=== PATIENT | female | born 1955 | race Caucasian/White ===

== ENCOUNTER 2024-10-29 10:10 | Inpatient (IN) | payer OTHER ==
--- OUTSIDE RECORDS SUMMARY | 2024-10-29 10:14 | XMS REPORT | Continuity of Care Document ---
Author Name Unknown Address [address] [facility] [address] [place] [address] [facility] Address [address] [facility] [address] [place] [address] Care Team Providers Care Medicaid Biller Name Role Phone Alivia Melchor Primary Care Physician [phone] Allergies, Adverse Reactions, Alerts Allergy Name Allergy Type Status Severity Reaction(s) Onset Date Inactive Date Treating Clinician Comments Source codeine Propensi ty to adverse reaction to drug Active 03-24 00:00: 00 Calvin Collins Codeine Sulfate - Oral Propensi ty to adverse reaction to drug Active 2022-10 00:00: 00 Calvin Collins Medications Ordered Medication Name Filled Medication Name Start Date Stop Date Current Medication? Ordering Clinician Indication Dosage Frequency Signature (SIG) Comments Components Source omeprazole 40 mg capsule,del ayed release -09 00:00: 00 Yes 1mg Calvin Collins lisinopril 20 mg tablet 9-04 00:00: 00 Yes 1mg Calvin Collins simvastatin 40 mg tablet 0 9-04 00:00: 00 Yes 1mg Calvin Collins lisinopril 20 mg tablet 0 9-03 00:00: 00 Yes 1mg Calvin Collins simvastatin 40 mg tablet 0 9-03 00:00: 00 Yes 1mg Calvin Collins glimepiride 2 mg tablet 8-15 00:00: 00 Yes 1mg Calvin Collins simvastatin 40 mg tablet - 00:00: 00 Yes 1mg Calvin Collins omeprazole 40 mg capsule,del ayed release - 00:00: 00 Yes 1mg Calvin Collins gabapentin 300 mg capsule 03-24 00:00: 00 Yes mg Calvin Collins lisinopril 20 mg tablet 03-24 00:00: 00 Yes 1mg Calvin Collins benzonatate 200 mg capsule 01-20 00:00: 00 Yes 1mg Calvin Collins Bromfed DM 2 mg-30 mg-10 mg/5 mL oral syrup - 00:00: 00 Yes 1mg/5 mL Calvin Collins TAKE 5 MILLILITERS BY MOUTH 3 TIMES A DAY 01-20 00:00: 00 Yes Calvin Collins ondansetron 4 mg disintegrat ing tablet 3- 00:00: 00 Yes mg Calvin Collins lisinopril 20 mg tablet - 00:00: 00 Yes mg Calvin Collins omeprazole 40 mg capsule,del ayed release - 00:00: 00 Yes mg Calvin Collins simvastatin 40 mg tablet - 00:00: 00 Yes mg Calvin Collins TAKE 1 TABLET DAILY. 2- 00:00: 00 Yes 20 Calvin Collins TAKE 1 CAPSULE EVERY MORNING DAILY. 2- 00:00: 00 Yes 40 Calvin Collins TAKE 1 TABLET AT BEDTIME. 2- 00:00: 00 Yes 40 Calvin Collins gabapentin 300 mg capsule 2-11 00:00: 00 Yes mg Calvin Collins OMEPRAZOLE 40 MG CPDR 2022-10 2-05 00:00: 00 Yes Calvin Collins SUPREP BOWEL PREP KIT 17.5-3.13-1 .6 GM/177ML SOLN 2022-10 00:00: 00 Yes Calvin Collins 1 daily 2022-10 00:00: 00 Yes 40 Calvin Collins 1 tab daily 2022-10 00:00: 00 Yes 20 Calvin Collins 1 daily 2022-10 00:00: 00 Yes 81 Calvin Collins every 2 weeks 2022-10 00:00: 00 Yes [id number] Calvin Collins 1 daily 2022-10 00:00: 00 Yes 40 Calvin Collins OMEPRAZOLE 40 MG CPDR 8-14 00:00: 00 Yes Calvin Collins LISINOPRIL 20 MG TABS -22 00:00: 00 Yes Calvin Collins SIMVASTATIN 40 MG TABS 6-22 00:00: 00 Yes Calvin Collins GABAPENTIN 300 MG 5-31 00:00: 00 Yes Calvin Collins TIZANIDINE HYDROCHLORI DE 4 MG TABS 5-31 00:00: 00 Yes Calvin Collins METHOCARBAM OL 750 MG TABS -17 00:00: 00 Yes Calvin Collins NITROFURANT OIN MONOHYDRATE 100 MG -17 00:00: 00 Yes Calvin Collins Immunizations Ordered Immunization Name Filled Immunization Name Date Status Comments Source SHINGRIX VACCINE SHINGRIX VACCINE 2022-11-09 00:00:00 Completed Calvin Collins SHINGRIX VACCINE SHINGRIX VACCINE 2022-11-09 00:00:00 Completed Calvin Collins influenza, high-dose, quadrivalent influenza, high-dose, quadrivalent 2022-08-17 00:00:00 Completed Calvin Collins SHINGRIX VACCINE SHINGRIX VACCINE 2022-08-17 00:00:00 Completed Calvin Collins influenza, high-dose, quadrivalent influenza, high-dose, quadrivalent 2022-08-17 00:00:00 Completed Calvin Collins SHINGRIX VACCINE SHINGRIX VACCINE 2022-08-17 00:00:00 Completed Calvin Collins Influenza, injectable, Madin Kierra Canine Kidney, preservative-free, quadrivalent Influenza, injectable, Madin Kierra Canine Kidney, preservative-free, quadrivalent 2021-09-07 00:00:00 Completed Calvin Collins Influenza, injectable, Madin [place] Canine Kidney, preservative-free, quadrivalent Influenza, injectable, Madin [place] Canine Kidney, preservative-free, quadrivalent 2021-09-07 00:00:00 Completed Calvin Collins Influenza, injectable, Madin [place] Canine Kidney, preservative-free, quadrivalent Influenza, injectable, Madin [place] Canine Kidney, preservative-free, quadrivalent 2020-07-31 00:00:00 Completed Calvin Collins Influenza, injectable, Madin Kierra Canine Kidney, preservative-free, quadrivalent Influenza, injectable, Madin Kierra Canine Kidney, preservative-free, quadrivalent 2020-07-31 00:00:00 Completed Calvin Collins influenza, injectable influenza, injectable 2018-08-25 00:00:00 Completed Calvin Collins influenza, injectable influenza, injectable 2018-08-25 00:00:00 Completed Calvin Collins Tdap Tdap 2013-07-14 00:00:00 Completed Calvin Collins Tdap Tdap 2013-07-14 00:00:00 Completed Calvin Collins Vital Signs Vital Name Observation Time Observation Value Comments S ourwendy BP Systolic 2024-08-31 15:55:00 125 mm[Hg] Step hen F Dennis BP Diastolic 2024-08-31 15:55:00 58 mm[Hg] Jose phen F Dennis Weight Measured 2024-08-31 15:55:00 199.00 pounds Calvin F Dennis Height Measured 2024-08-31 15:55:00 65.35 inches Calvin F Dennis Body Temperature 2024-08-31 15:55:00 97.70 degrees Calvin F Dennis Heart Rate 2024-08-31 15:55:00 84.00 /min Park en F Dennis Respiratory Rate 2024-08-31 15:55:00 17.00 /min Calvin F Dennis BP Systolic 2024-06-15 08:44:00 140 mm[Hg] Step hen F Dennis BP Diastolic 2024-06-15 08:44:00 66 mm[Hg] Jose phen F Dennis Weight Measured 2024-06-15 08:44:00 194.80 pounds Calvin F Dennis Height Measured 2024-06-15 08:44:00 65.35 inches Calvin F Dennis Body Temperature 2024-06-15 08:44:00 97.90 degrees Calvin F Dennis Heart Rate 2024-06-15 08:44:00 56.00 /min Park en F Dennis Respiratory Rate 2024-06-15 08:44:00 17.00 /min Calvin F Dennis BP Systolic 2024-06-10 08:29:00 137 mm[Hg] Step hen F Dennis BP Diastolic 2024-06-10 08:29:00 63 mm[Hg] Jose phen F Dennis Weight Measured 2024-06-10 08:29:00 194.80 pounds Calvin F Dennis Height Measured 2024-06-10 08:29:00 65.35 inches Calvin F Dennis Body Temperature 2024-06-10 08:29:00 98.10 degrees Calvin F Dennis Heart Rate 2024-06-10 08:29:00 64.00 /min Park en F Dennis Respiratory Rate 2024-06-10 08:29:00 17.00 /min Calvin F Dennis BP Systolic 2024-06-03 09:28:00 158 mm[Hg] Step hen F Dennis BP Diastolic 2024-06-03 09:28:00 69 mm[Hg] Jose phen F Dennis Weight Measured 2024-06-03 09:28:00 197.20 pounds Calvin F Dennis Height Measured 2024-06-03 09:28:00 65.35 inches Calvin F Dennis Body Temperature 2024-06-03 09:28:00 97.40 degrees Calvin F Dennis Heart Rate 2024-06-03 09:28:00 64.00 /min Park en F Dennis Respiratory Rate 2024-06-03 09:28:00 18.00 /min Calvin F Dennis BP Systolic 2024-03-24 10:50:00 181 mm[Hg] Step hen F Dennis BP Diastolic 2024-03-24 10:50:00 82 mm[Hg] Jose phen F Dennis Weight Measured 2024-03-24 10:50:00 190.20 pounds Calvin F Dennis Height Measured 2024-03-24 10:50:00 65.35 inches Calvin F Dennis Body Temperature 2024-03-24 10:50:00 97.90 degrees Calvin F Dennis Heart Rate 2024-03-24 10:50:00 61.00 /min Park en F Dennis Respiratory Rate 2024-03-24 10:50:00 Calvin F Dennis BP Diastolic 2024-03-09 10:42:00 71 mm[Hg] Jose phen F Dennis Weight Measured 2024-03-09 10:42:00 193.60 pounds Calvin F Dennis Height Measured 2024-03-09 10:42:00 65.35 inches Calvin F Dennis Body Temperature 2024-03-09 10:42:00 97.90 degrees Calvin F Dennis Heart Rate 2024-03-09 10:42:00 76.00 /min Park en F Dennis Respiratory Rate 2024-03-09 10:42:00 16.00 /min Calvin F Dennis BP Systolic 2024-03-09 10:42:00 128 mm[Hg] Step hen F Dennis BP Systolic 2024-01-21 15:32:00 160 mm[Hg] Step hen F Dennis BP Diastolic 2024-01-21 15:32:00 59 mm[Hg] Jose phen F Dennis Weight Measured 2024-01-21 15:32:00 193.40 pounds Calvin F Dennis Height Measured 2024-01-21 15:32:00 65.35 inches Calvin F Dennis Body Temperature 2024-01-21 15:32:00 98.20 degrees Calvin F Dennis Heart Rate 2024-01-21 15:32:00 62.00 /min Park en F Dennis Respiratory Rate 2024-01-21 15:32:00 19.00 /min Calvin F Dennis BP Systolic 2023-12-09 11:28:00 126 mm[Hg] Step hen F Dennis BP Diastolic 2023-12-09 11:28:00 57 mm[Hg] Jose phen F Dennis Weight Measured 2023-12-09 11:28:00 194.80 pounds Calvin F Dennis Height Measured 2023-12-09 11:28:00 65.35 inches Calvin F Dennis Body Temperature 2023-12-09 11:28:00 98.20 degrees Calvin F Dennis Heart Rate 2023-12-09 11:28:00 65.00 /min Park en F Dennis Respiratory Rate 2023-12-09 11:28:00 18.00 /min Calvin F Dennis BP Systolic 2023-09-30 08:52:00 147 mm[Hg] Step hen F Dennis BP Diastolic 2023-09-30 08:52:00 74 mm[Hg] Jose phen F Dennis Weight Measured 2023-09-30 08:52:00 192.60 pounds Calvin F Dennis Height Measured 2023-09-30 08:52:00 65.35 inches Calvin F Dennis Body Temperature 2023-09-30 08:52:00 98.20 degrees Calvin F Dennis Heart Rate 2023-09-30 08:52:00 75.00 /min Park en Nurys Collins Respiratory Rate 2023-09-30 08:52:00 19.00 /min Calvin Collins BP Systolic 2023-08-27 09:09:00 124 mm[Hg] Chris Collins BP Diastolic 2023-08-27 09:09:00 68 mm[Hg] Jose Collins Weight Measured 2023-08-27 09:09:00 191.20 pounds Calvin Collins Height Measured 2023-08-27 09:09:00 65.35 inches Calvin Collins Body Temperature 2023-08-27 09:09:00 98.30 degrees Calvin Collins Heart Rate 2023-08-27 09:09:00 72.00 /min Park Collins Respiratory Rate 2023-08-27 09:09:00 Calvin Collins Encounters Start Date/Time End Date/Time Encounter Type Admission Type Attending [facility] Care Department Encounter ID Source 2024-10-29 08:41:12 2024-10-29 08:41:12 Outpatient SFA SFA [id number] Calvin Collins 2024-09-01 10:52:43 2024-09-01 10:52:43 Outpatient SFA SFA [id number] Calvin Collins 2024-08-31 15:49:25 2024-08-31 15:49:25 Outpatient SFA SFA [id number] Calvin Collins 2024-08-31 00:00:00 2024-08-31 00:00:00 Outpatient Visit SFA [id number] Calvin Collins 2024-06-15 08:34:28 2024-06-15 08:34:28 Outpatient SFA SFA [id number] Calvin Collins 2024-06-15 00:00:00 2024-06-15 00:00:00 Outpatient Visit SFA [id number] Calvin Collins 2024-06-10 11:26:20 2024-06-10 11:26:20 Outpatient SFA SFA [id number] Calvin Collins 2024-06-10 00:00:00 2024-06-10 00:00:00 Outpatient Visit SFA [id number] Calvin Collins 2024-06-03 09:19:12 2024-06-03 09:19:12 Outpatient SFA SFA [id number] Calvin Collins 2024-06-03 00:00:00 2024-06-03 00:00:00 Outpatient Visit SFA [id number] Calvin Collins 2024-03-24 10:42:28 2024-03-24 10:42:28 Outpatient SFA SFA [id number] Calvin Collins 2024-03-24 00:00:00 2024-03-24 00:00:00 Outpatient Visit SFA [id number] Calvin Collins 2024-03-09 10:22:54 2024-03-09 10:22:54 Outpatient SFA SFA [id number] Calvin Collins 2024-03-09 00:00:00 2024-03-09 00:00:00 Outpatient Visit SFA [id number] Calvin Collins 2024-01-21 15:23:36 2024-01-21 15:23:36 Outpatient SFA SFA [id number] Calvin Collins 2023-12-09 11:13:04 2023-12-09 11:13:04 Outpatient SFA SFA [id number] Calvin Collins 2023-09-30 08:45:55 2023-09-30 08:45:55 Outpatient SFA SFA [id number] Calvin Collins 2023-08-27 09:03:52 2023-08-27 09:03:52 Outpatient SFA SFA [id number] Calvin Collins Results Test Description Test Time Test Comments Results Result Co mments Source HEPATITIS B SURFACE [id number] 04:12:28* Test Item Value Reference Range Interpretation Comme nts HEPATITIS B SURFACE AB (test code = 2737) NON-REACTIVE NON-REACTIVE HEP B CORE TOTAL [id number] 04:12:28* Test Item Value Reference Range Interpretation Comme nts HEP B CORE TOTAL AB (test code = 2729) NON-REACTIVE NON-REACTIVE UNLESS OTHERWISE INDICATED, ALL TESTING PERFORMED AT [facility] [address] [place] [address] [employer] PRESS HELPER: GRAZYNA POOLE M.D. [place] NUMBER [id number] [facility] [place]. [id number] HIV 1/2 4TH GEN, RFLX [id number] 04:12:28* Test Item Value Reference Range Interpretation Comme nts HIV 1/2 4TH GEN, RFLX CONF ( test code = 3514) NON-REACTIVE NON-REACTIVE HEPATITIS C [id number] 04:12:28* Test Item Value Reference Range Interpretation Comme nts HEPATITIS C ANTIBODY (test c ode = 4675) NON-REACTIVE NON-REACTIVE HEPATITIS B SURF [id number] 04:12:28* Test Item Value Reference Range Interpretation Comme nts HEPATITIS B SURF AG (test co de = 2739) NON-REACTIVE NON-REACTIVE CBC W/AUTO DIFF WITH [id number] 03:43:35* Test Item Value Reference Range Interpretation Comme nts WBC (test code = 1001) 6.4 K/UL 3.5-11.0 RBC (test code = 1002) 3.73 M/UL 3.80-5.40 L HEMOGLOBIN (test code = 1003) 12.6 G/DL 11.5-15.5 HEMATOCRIT (test code = 1004) 36.6 % 34.0-45.0 MCV (test code = 1005) 98.1 fL 80.0-99.0 MCH (test code = 1006) 33.8 PG 25.0-33.0 H MCHC (test code = 1007) 34.4 G/DL 31.0-36.0 RDW (test code = 1038) 12.9 % 11.5-15.0 NEUTROPHILS (test code = 1008) 36.0 % LYMPHOCYTES (test code = 1010) 52.8 % MONOCYTES (test code = 1011) 6.1 % EOSINOPHILS (test code = 1012) 4.3 % BASOPHILS (test code = 1013) 0.6 % IMMATURE GRANULOCYTES (test code = 1036) 0.2 % NUCLEATED RBCS (test code = 1065) 0.0 /100 WBC'S See_Comment [Automated [employer] ge] The system which generated this result transmitted reference range: 0.0. The reference range was not used to interpret this result as normal/abnormal. PLATELET COUNT (test code = 1015) 264 K/UL 130-400 ABSOLUTE NEUTROPHILS (test code = 1066) 2.29 K/UL 1.50-7.50 ABSOLUTE LYMPHOCYTES (test code = 1067) 3.35 K/UL 1.00-4.00 ABSOLUTE MONOCYTES (test code = 1068) 0.39 K/UL 0.20-1.00 ABSOLUTE EOSINOPHILS (test code = 1040) 0.27 K/UL 0.00-0.50 ABSOLUTE BASOPHILS (test code = 1069) 0.04 K/UL 0.00-0.20 ABS IMMATURE GRANULOCYTES (test code = 1020) 0.01 K/UL 0.00-0.10 ABS NUCLEATED RBCS (test code = 38985) 0.00 K/UL 0.00-0.11 LIPID [id number] 03:20:09* Test Item Value Reference Range Interpretation Comme nts CHOLESTEROL (test code = 2210) 195 MG/DL <200 TRIGLYCERIDES (test code = 2232) 322 MG/DL <150 H HDL CHOLESTEROL (test code = 2220) 42 MG/DL >39 CALC LDL CHOL (test code = 2237) 110 MG/DL <100 H NOTE: CALCULATED LDL IS BASED ON REJI-ARRIAZA METHOD WHICHINCLUDES ADJUSTABLE TRIGLYCERIDE:VLDL CHOLESTEROL RATIO.THIS FACTOR VARIES BY MEASURED TRIGLYCERIDE AND NON-HDLCHOLESTEROL CONCENTRATIONS WITH INCREASED CALCULATED LDL SEENIN HIGHER TRIGLYCERIDE OR LOWER NON-HDL SPECIMENS. FOR MOREINFORMATION, SEE CLIENT ANNOUNCEMENT AT [email or web address] RISK RATIO LDL/HDL (test code = 2238) 2.62 RATIO <3.22 COMPREHENSIVE METABOLIC [id number] 03:20:09* Test Item Value Reference Range Interpretation Comme nts GLUCOSE (test code = 2217) 186 MG/DL 70-99 H BUN (test code = 2208) 14 MG/DL 8-23 CREATININE (test code = 2214) 0.99 MG/DL 0.60-1.30 eGFR (2020 CKD-EPI) (test co de = 73685) 62 ML/MIN/1.73 >60 CALC BUN/CREAT (test code = 2234) 14 RATIO 6-28 SODIUM (test code = 223) 138 MEQ/L 133-146 POTASSIUM (test code = 2227) 4.8 MEQ/L 3.5-5.4 CHLORIDE (test code = 2214) 103 MEQ/L 95-107 CARBON DIOXIDE (test code = 220) 24 MEQ/L 19-31 CALCIUM (test code = 2208) 9.7 MG/DL 8.5-10.5 PROTEIN, TOTAL (test code = 2228) 6.6 G/DL 6.1-8.3 ALBUMIN (test code = 2200) 4.6 G/DL 3.5-5.2 CALC GLOBULIN (test code = 2239) 2.0 G/DL 1.9-3.7 CALC A/G RATIO (test code = 2233) 2.3 RATIO 1.0-2.6 BILIRUBIN, TOTAL (test code = 2206) 0.3 MG/DL <=1.2 ALKALINE PHOSPHATASE (test code = 2203) 59 U/L 40-142 AST (test code = 2217) 26 U/L 9-40 ALT (test code = 2219) 33 U/L 5-40 CBC W/AUTO [id number] 00:00:00* Test Item Value Reference Range Interpretation Comme nts WBC (test code = 1001) 6.4 K/UL RBC (test code = 1002) 3.73 M/UL HEMOGLOBIN (test code = 1003) 12.6 G/DL HEMATOCRIT (test code = 1004) 36.6 % MCV (test code = 1005) 98.1 fL MCH (test code = 1006) 33.8 PG MCHC (test code = 1007) 34.4 G/DL RDW (test code = 1038) 12.9 % NEUTROPHILS (test code = 1008) 36.0 % LYMPHOCYTES (test code = 1010) 52.8 % MONOCYTES (test code = 1011) 6.1 % EOSINOPHILS (test code = 1012) 4.3 % BASOPHILS (test code = 1013) 0.6 % IMMATURE GRANULOCYTES (test code = 1036) 0.2 % NUCLEATED RBCS (test code = 1065) 0.0 /100WBC'S PLATELET COUNT (test code = 1015) 264 K/UL ABSOLUTE NEUTROPHILS (test c ode = 1066) 2.29 K/UL ABSOLUTE LYMPHOCYTES (test c ode = 1067) 3.35 K/UL ABSOLUTE MONOCYTES (test cod e = 1068) 0.39 K/UL ABSOLUTE EOSINOPHILS (test c ode = 1040) 0.27 K/UL ABSOLUTE BASOPHILS (test cod e = 1069) 0.04 K/UL ABS IMMATURE GRANULOCYTES (t est code = 1020) 0.01 K/UL ABS NUCLEATED RBCS (test cod e = 08878) 0.00 K/UL Calvin CollinsHEMOGLOBIN [id number] 00:00:00* Test Item Value Reference Range Interpretation Comme nts HEMOGLOBIN A1c (test code = 86302) 6.5 % Calvin CollinsLIPID [id number] 00:00:00* Test Item Value Reference Range Interpretation Comme nts CHOLESTEROL (test code = 2210) 195 MG/DL TRIGLYCERIDES (test code = 2232) 322 MG/DL HDL CHOLESTEROL (test code = 2220) 42 MG/DL CALC LDL CHOL (test code = 2237) 110 MG/DL RISK RATIO LDL/HDL (test cod e = 2238) 2.62 RATIO Calvin CollinsCOMPREHENSIVE METABOLIC [id number] 00:00:00* Test Item Value Reference Range Interpretation Comme nts GLUCOSE (test code = 2217) 186 MG/DL BUN (test code = 2208) 14 MG/DL CREATININE (test code = 2214) 0.99 MG/DL eGFR (2020 CKD-EPI) (test co de = 39689) 62 ML/MIN/1.73 CALC BUN/CREAT (test code = 2235) 14 RATIO SODIUM (test code = 2231) 138 MEQ/L POTASSIUM (test code = 2228) 4.8 MEQ/L CHLORIDE (test code = 2215) 103 MEQ/L CARBON DIOXIDE (test code = 2206) 24 MEQ/L CALCIUM (test code = 2209) 9.7 MG/DL PROTEIN, TOTAL (test code = 2229) 6.6 G/DL ALBUMIN (test code = 2201) 4.6 G/DL CALC GLOBULIN (test code = 2240) 2.0 G/DL CALC A/G RATIO (test code = 2234) 2.3 RATIO BILIRUBIN, TOTAL (test code = 2207) 0.3 MG/DL ALKALINE PHOSPHATASE (test code = 2204) 59 U/L AST (test code = 2218) 26 U/L ALT (test code = 2219) 33 U/L Calvin CollinsHIV 1/2 4TH GEN, RFLX [id number] 00:00:00* Test Item Value Reference Range Interpretation Comme nts HIV 1/2 4TH GEN, RFLX CONF ( test code = 3514) NON-REACTIVE Calvin CollinsHEPATITIS C [id number] 00:00:00* Test Item Value Reference Range Interpretation Comme nts HEPATITIS C ANTIBODY (test c ode = 4675) NON-REACTIVE Calvin CollinsHEPATITIS B SURF [id number] 00:00:00* Test Item Value Reference Range Interpretation Comme nts HEPATITIS B SURF AG (test co de = 2739) NON-REACTIVE Calvin Nuno AustinHEPATITIS B SURFACE [id number] 00:00:00* Test Item Value Reference Range Interpretation Comme nts HEPATITIS B SURFACE AB (test code = 2737) NON-REACTIVE Calvin CollinsHEP B CORE TOTAL [id number] 00:00:00* Test Item Value Reference Range Interpretation Comme nts HEP B CORE TOTAL AB (test co de = 2729) NON-REACTIVE Calvin CollinsCBC W/AUTO [id number] 00:00:00* Test Item Value Reference Range Interpretation Comme nts WBC (test code = 1001) 6.4 K/UL RBC (test code = 1002) 3.73 M/UL HEMOGLOBIN (test code = 1003) 12.6 G/DL HEMATOCRIT (test code = 1004) 36.6 % MCV (test code = 1005) 98.1 fL MCH (test code = 1006) 33.8 PG MCHC (test code = 1007) 34.4 G/DL RDW (test code = 1038) 12.9 % NEUTROPHILS (test code = 1008) 36.0 % LYMPHOCYTES (test code = 1010) 52.8 % MONOCYTES (test code = 1011) 6.1 % EOSINOPHILS (test code = 1012) 4.3 % BASOPHILS (test code = 1013) 0.6 % IMMATURE GRANULOCYTES (test code = 1036) 0.2 % NUCLEATED RBCS (test code = 1065) 0.0 /100WBC'S PLATELET COUNT (test code = 1015) 264 K/UL ABSOLUTE NEUTROPHILS (test c ode = 1066) 2.29 K/UL ABSOLUTE LYMPHOCYTES (test c ode = 1067) 3.35 K/UL ABSOLUTE MONOCYTES (test cod e = 1068) 0.39 K/UL ABSOLUTE EOSINOPHILS (test c ode = 1040) 0.27 K/UL ABSOLUTE BASOPHILS (test cod e = 1069) 0.04 K/UL ABS IMMATURE GRANULOCYTES (t est code = 1020) 0.01 K/UL ABS NUCLEATED RBCS (test cod e = 29743) 0.00 K/UL Calvin CollinsHEMOGLOBIN [id number] 00:00:00* Test Item Value Reference Range Interpretation Comme nts HEMOGLOBIN A1c (test code = 07226) 6.5 % Calvin CollinsLIPID [id number] 00:00:00* Test Item Value Reference Range Interpretation Comme nts CHOLESTEROL (test code = 2210) 195 MG/DL TRIGLYCERIDES (test code = 2232) 322 MG/DL HDL CHOLESTEROL (test code = 2220) 42 MG/DL CALC LDL CHOL (test code = 2237) 110 MG/DL RISK RATIO LDL/HDL (test cod e = 2238) 2.62 RATIO Calvin CollinsCOMPREHENSIVE METABOLIC [id number] 00:00:00* Test Item Value Reference Range Interpretation Comme nts GLUCOSE (test code = 2217) 186 MG/DL BUN (test code = 2208) 14 MG/DL CREATININE (test code = 2214) 0.99 MG/DL eGFR (2020 CKD-EPI) (test co de = 70989) 62 ML/MIN/1.73 CALC BUN/CREAT (test code = 2235) 14 RATIO SODIUM (test code = 2231) 138 MEQ/L POTASSIUM (test code = 2228) 4.8 MEQ/L CHLORIDE (test code = 2215) 103 MEQ/L CARBON DIOXIDE (test code = 2206) 24 MEQ/L CALCIUM (test code = 2209) 9.7 MG/DL PROTEIN, TOTAL (test code = 2229) 6.6 G/DL ALBUMIN (test code = 2201) 4.6 G/DL CALC GLOBULIN (test code = 2240) 2.0 G/DL CALC A/G RATIO (test code = 2234) 2.3 RATIO BILIRUBIN, TOTAL (test code = 2207) 0.3 MG/DL ALKALINE PHOSPHATASE (test code = 2204) 59 U/L AST (test code = 2218) 26 U/L ALT (test code = 2219) 33 U/L Calvin CollinsHIV 1/2 4TH GEN, RFLX [id number] 00:00:00* Test Item Value Reference Range Interpretation Comme nts HIV 1/2 4TH GEN, RFLX CONF ( test code = 3514) NON-REACTIVE Calvin CollinsHEPATITIS C [id number] 00:00:00* Test Item Value Reference Range Interpretation Comme nts HEPATITIS C ANTIBODY (test c ode = 4675) NON-REACTIVE Calvin CollinsHEPATITIS B SURF [id number] 00:00:00* Test Item Value Reference Range Interpretation Comme nts HEPATITIS B SURF AG (test co de = 2739) NON-REACTIVE Calvin CollinsHEPATITIS B SURFACE [id number] 00:00:00* Test Item Value Reference Range Interpretation Comme nts HEPATITIS B SURFACE AB (test code = 2737) NON-REACTIVE Calvin CollinsHEP B CORE TOTAL [id number] 00:00:00* Test Item Value Reference Range Interpretation Comme nts HEP B CORE TOTAL AB (test co de = 2729) NON-REACTIVE Calvin CollinsCBC W/AUTO [id number] 00:00:00* Test Item Value Reference Range Interpretation Comme nts WBC (test code = 1001) 6.4 K/UL RBC (test code = 1002) 3.73 M/UL HEMOGLOBIN (test code = 1003) 12.6 G/DL HEMATOCRIT (test code = 1004) 36.6 % MCV (test code = 1005) 98.1 fL MCH (test code = 1006) 33.8 PG MCHC (test code = 1007) 34.4 G/DL RDW (test code = 1038) 12.9 % NEUTROPHILS (test code = 1008) 36.0 % LYMPHOCYTES (test code = 1010) 52.8 % MONOCYTES (test code = 1011) 6.1 % EOSINOPHILS (test code = 1012) 4.3 % BASOPHILS (test code = 1013) 0.6 % IMMATURE GRANULOCYTES (test code = 1036) 0.2 % NUCLEATED RBCS (test code = 1065) 0.0 /100WBC'S PLATELET COUNT (test code = 1015) 264 K/UL ABSOLUTE NEUTROPHILS (test c ode = 1066) 2.29 K/UL ABSOLUTE LYMPHOCYTES (test c ode = 1067) 3.35 K/UL ABSOLUTE MONOCYTES (test cod e = 1068) 0.39 K/UL ABSOLUTE EOSINOPHILS (test c ode = 1040) 0.27 K/UL ABSOLUTE BASOPHILS (test cod e = 1069) 0.04 K/UL ABS IMMATURE GRANULOCYTES (t est code = 1020) 0.01 K/UL ABS NUCLEATED RBCS (test cod e = 25600) 0.00 K/UL Calvin CollinsHEMOGLOBIN [id number] 00:00:00* Test Item Value Reference Range Interpretation Comme nts HEMOGLOBIN A1c (test code = 25280) 6.5 % Calvin CollinsLIPID [id number] 00:00:00* Test Item Value Reference Range Interpretation Comme nts CHOLESTEROL (test code = 2210) 195 MG/DL TRIGLYCERIDES (test code = 2232) 322 MG/DL HDL CHOLESTEROL (test code = 2220) 42 MG/DL CALC LDL CHOL (test code = 2237) 110 MG/DL RISK RATIO LDL/HDL (test cod e = 2238) 2.62 RATIO Calvin CollinsCOMPREHENSIVE METABOLIC [id number] 00:00:00* Test Item Value Reference Range Interpretation Comme nts GLUCOSE (test code = 2217) 186 MG/DL BUN (test code = 2208) 14 MG/DL CREATININE (test code = 2214) 0.99 MG/DL eGFR (2020 CKD-EPI) (test co de = 04827) 62 ML/MIN/1.73 CALC BUN/CREAT (test code = 2235) 14 RATIO SODIUM (test code = 2231) 138 MEQ/L POTASSIUM (test code = 2228) 4.8 MEQ/L CHLORIDE (test code = 2215) 103 MEQ/L CARBON DIOXIDE (test code = 2206) 24 MEQ/L CALCIUM (test code = 2209) 9.7 MG/DL PROTEIN, TOTAL (test code = 2229) 6.6 G/DL ALBUMIN (test code = 2201) 4.6 G/DL CALC GLOBULIN (test code = 2240) 2.0 G/DL CALC A/G RATIO (test code = 2234) 2.3 RATIO BILIRUBIN, TOTAL (test code = 2207) 0.3 MG/DL ALKALINE PHOSPHATASE (test code = 2204) 59 U/L AST (test code = 2218) 26 U/L ALT (test code = 2219) 33 U/L Calvin CollinsHIV 1/2 4TH GEN, RFLX [id number] 00:00:00* Test Item Value Reference Range Interpretation Comme nts HIV 1/2 4TH GEN, RFLX CONF ( test code = 3514) NON-REACTIVE Calvin CollinsHEPATITIS C [id number] 00:00:00* Test Item Value Reference Range Interpretation Comme nts HEPATITIS C ANTIBODY (test c ode = 4675) NON-REACTIVE Calvin CollinsHEPATITIS B SURF [id number] 00:00:00* Test Item Value Reference Range Interpretation Comme nts HEPATITIS B SURF AG (test co de = 2739) NON-REACTIVE Calvin CollinsHEPATITIS B SURFACE [id number] 00:00:00* Test Item Value Reference Range Interpretation Comme nts HEPATITIS B SURFACE AB (test code = 2737) NON-REACTIVE Calvin CollinsHEP B CORE TOTAL [id number] 00:00:00* Test Item Value Reference Range Interpretation Comme nts HEP B CORE TOTAL AB (test co de = 2729) NON-REACTIVE Calvin Nuno AustinTSH, THIRD [id number] 06:45:41* Test Item Value Reference Range Interpretation Comme nts TSH, THIRD GENERATION (test code = 2821) 1.510 UIU/ML 0.400-4.100 UNLESS OTHERWISE INDICATED, ALL TESTING PERFORMED AT [facility] [address] [place] [address] SPAGHETTI PRESS HELPER: GRAZYNA POOLE M.D. CLIA NUMBER [id number] [facility] [place]. [id number] LIPID [id number] 06:15:21* Test Item Value Reference Range Interpretation Comme nts CHOLESTEROL (test code = 2210) 191 MG/DL <200 TRIGLYCERIDES (test code = 2232) 238 MG/DL <150 H HDL CHOLESTEROL (test code = 2220) 45 MG/DL >39 CALC LDL CHOL (test code = 2237) 110 MG/DL <100 H NOTE: CALCULATED LDL IS BASED ON REJI-ARRIAZA METHOD WHICHINCLUDES ADJUSTABLE TRIGLYCERIDE:VLDL CHOLESTEROL RATIO.THIS FACTOR VARIES BY MEASURED TRIGLYCERIDE AND NON-HDLCHOLESTEROL CONCENTRATIONS WITH INCREASED CALCULATED LDL SEENIN HIGHER TRIGLYCERIDE OR LOWER NON-HDL SPECIMENS. FOR MOREINFORMATION, SEE CLIENT ANNOUNCEMENT AT [email or web address] RISK RATIO LDL/HDL (test code = 2238) 2.44 RATIO <3.22 COMPREHENSIVE METABOLIC [id number] 06:15:21* Test Item Value Reference Range Interpretation Comme nts GLUCOSE (test code = 221) 108 MG/DL 70-99 H BUN (test code = 2207) 18 MG/DL 8-23 CREATININE (test code = 2214) 1.03 MG/DL 0.60-1.30 eGFR (2020 CKD-EPI) (test co de = 11142) 60 ML/MIN/1.73 >60 L CALC BUN/CREAT (test code = 2235) 17 RATIO 6-28 SODIUM (test code = 223) 141 MEQ/L 133-146 POTASSIUM (test code = 2228) 4.6 MEQ/L 3.5-5.4 CHLORIDE (test code = 2215) 104 MEQ/L 95-107 CARBON DIOXIDE (test code = 2206) 25 MEQ/L 19-31 CALCIUM (test code = 2209) 10.0 MG/DL 8.5-10.5 PROTEIN, TOTAL (test code = 222) 6.8 G/DL 6.1-8.3 ALBUMIN (test code = 2201) 4.6 G/DL 3.5-5.2 CALC GLOBULIN (test code = 2240) 2.2 G/DL 1.9-3.7 CALC A/G RATIO (test code = 2234) 2.1 RATIO 1.0-2.6 BILIRUBIN, TOTAL (test code = 220) 0.4 MG/DL <=1.2 ALKALINE PHOSPHATASE (test code = 2204) 62 U/L 40-142 AST (test code = 2218) 21 U/L 9-40 ALT (test code = 2219) 26 U/L 5-40 HEMOGLOBIN [id number] 02:16:22* Test Item Value Reference Range Interpretation Comme nts HEMOGLOBIN A1c (test code = 12798) 6.0 % 4.2-5.6 H [employer] GUIDELINES FOR HGB A1C: PREDIABETES/INCREASED RISK . . . . . . . 5.7-6.4% DIAGNOSIS OF DIABETES . . . . . . . . . >=6.5% WITH CONFIRMATION OR APPROPRIATE SYMPTOMS NOTE: ASSAY MAY BE AFFECTED BY HEMOGLOBINOPATHIES (SICKLE CELL ANEMIA, S-C DISEASE, OTHERS) OR ARTIFICIALLY LOWERED BY DECREASED RED CELL SURVIVAL (HEMOLYTIC ANEMIAS, BLOOD LOSS, ETC.). CONSIDER ALTERNATE TESTING OR LABORATORY CONSULTATION. CBC W/AUTO DIFF WITH [id number] 01:53:52* Test Item Value Reference Range Interpretation Comme nts WBC (test code = 1001) 7.3 K/UL 3.5-11.0 RBC (test code = 1002) 3.80 M/UL 3.80-5.40 HEMOGLOBIN (test code = 1003) 12.7 G/DL 11.5-15.5 HEMATOCRIT (test code = 1004) 37.9 % 34.0-45.0 MCV (test code = 1005) 99.7 fL 80.0-99.0 H MCH (test code = 1006) 33.4 PG 25.0-33.0 H MCHC (test code = 1007) 33.5 G/DL 31.0-36.0 RDW (test code = 1038) 12.8 % 11.5-15.0 NEUTROPHILS (test code = 1008) 48.1 % LYMPHOCYTES (test code = 1010) 40.3 % MONOCYTES (test code = 1011) 6.0 % EOSINOPHILS (test code = 1012) 4.7 % BASOPHILS (test code = 1013) 0.8 % IMMATURE GRANULOCYTES (test code = 1036) 0.1 % NUCLEATED RBCS (test code = 1065) 0.0 /100 WBC'S See_Comment [Automated [employer] The system which generated this result transmitted reference range: 0.0. The reference range was not used to interpret this result as normal/abnormal. PLATELET COUNT (test code = 1015) 281 K/UL 130-400 ABSOLUTE NEUTROPHILS (test code = 1066) 3.50 K/UL 1.50-7.50 ABSOLUTE LYMPHOCYTES (test code = 1067) 2.94 K/UL 1.00-4.00 ABSOLUTE MONOCYTES (test code = 1068) 0.44 K/UL 0.20-1.00 ABSOLUTE EOSINOPHILS (test code = 1040) 0.34 K/UL 0.00-0.50 ABSOLUTE BASOPHILS (test code = 1069) 0.06 K/UL 0.00-0.20 ABS IMMATURE GRANULOCYTES (test code = 1020) 0.01 K/UL 0.00-0.10 ABS NUCLEATED RBCS (test code = 70156) 0.00 K/UL 0.00-0.11 LIPID [id number] 00:00:00* Test Item Value Reference Range Interpretation Comme nts CHOLESTEROL (test code = 2210) 191 MG/DL TRIGLYCERIDES (test code = 2232) 238 MG/DL HDL CHOLESTEROL (test code = 2220) 45 MG/DL CALC LDL CHOL (test code = 2237) 110 MG/DL RISK RATIO LDL/HDL (test cod e = 2238) 2.44 RATIO Calvin F DennisCOMPREHENSIVE METABOLIC [id number] 00:00:00* Test Item Value Reference Range Interpretation Comme nts GLUCOSE (test code = 2217) 108 MG/DL BUN (test code = 2208) 18 MG/DL CREATININE (test code = 2214) 1.03 MG/DL eGFR (2020 CKD-EPI) (test co de = 09381) 60 ML/MIN/1.73 CALC BUN/CREAT (test code = 2235) 17 RATIO SODIUM (test code = 2231) 141 MEQ/L POTASSIUM (test code = 2228) 4.6 MEQ/L CHLORIDE (test code = 2215) 104 MEQ/L CARBON DIOXIDE (test code = 2206) 25 MEQ/L CALCIUM (test code = 2209) 10.0 MG/DL PROTEIN, TOTAL (test code = 2229) 6.8 G/DL ALBUMIN (test code = 2201) 4.6 G/DL CALC GLOBULIN (test code = 2240) 2.2 G/DL CALC A/G RATIO (test code = 2234) 2.1 RATIO BILIRUBIN, TOTAL (test code = 2207) 0.4 MG/DL ALKALINE PHOSPHATASE (test code = 2204) 62 U/L AST (test code = 2218) 21 U/L ALT (test code = 2219) 26 U/L Calvin PyleH, THIRD [id number] 00:00:00* Test Item Value Reference Range Interpretation Comme nts TSH, THIRD GENERATION (test code = 2821) 1.510 UIU/ML Calvin CollinsCBC W/AUTO [id number] 00:00:00* Test Item Value Reference Range Interpretation Comme nts WBC (test code = 1001) 7.3 K/UL RBC (test code = 1002) 3.80 M/UL HEMOGLOBIN (test code = 1003) 12.7 G/DL HEMATOCRIT (test code = 1004) 37.9 % MCV (test code = 1005) 99.7 fL MCH (test code = 1006) 33.4 PG MCHC (test code = 1007) 33.5 G/DL RDW (test code = 1038) 12.8 % NEUTROPHILS (test code = 1008) 48.1 % LYMPHOCYTES (test code = 1010) 40.3 % MONOCYTES (test code = 1011) 6.0 % EOSINOPHILS (test code = 1012) 4.7 % BASOPHILS (test code = 1013) 0.8 % IMMATURE GRANULOCYTES (test code = 1036) 0.1 % NUCLEATED RBCS (test code = 1065) 0.0 /100WBC'S PLATELET COUNT (test code = 1015) 281 K/UL ABSOLUTE NEUTROPHILS (test c ode = 1066) 3.50 K/UL ABSOLUTE LYMPHOCYTES (test c ode = 1067) 2.94 K/UL ABSOLUTE MONOCYTES (test cod e = 1068) 0.44 K/UL ABSOLUTE EOSINOPHILS (test c ode = 1040) 0.34 K/UL ABSOLUTE BASOPHILS (test cod e = 1069) 0.06 K/UL ABS IMMATURE GRANULOCYTES (t est code = 1020) 0.01 K/UL ABS NUCLEATED RBCS (test cod e = 55930) 0.00 K/UL Calvin CollinsHEMOGLOBIN [id number] 00:00:00* Test Item Value Reference Range Interpretation Comme nts HEMOGLOBIN A1c (test code = 83105) 6.0 % Calvin CollinsLIPID [id number] 00:00:00* Test Item Value Reference Range Interpretation Comme nts CHOLESTEROL (test code = 2210) 191 MG/DL TRIGLYCERIDES (test code = 2232) 238 MG/DL HDL CHOLESTEROL (test code = 2220) 45 MG/DL CALC LDL CHOL (test code = 2237) 110 MG/DL RISK RATIO LDL/HDL (test cod e = 2238) 2.44 RATIO Calvin CollinsCOMPREHENSIVE METABOLIC [id number] 00:00:00* Test Item Value Reference Range Interpretation Comme nts GLUCOSE (test code = 2217) 108 MG/DL BUN (test code = 2208) 18 MG/DL CREATININE (test code = 2214) 1.03 MG/DL eGFR (2020 CKD-EPI) (test co de = 20815) 60 ML/MIN/1.73 CALC BUN/CREAT (test code = 2235) 17 RATIO SODIUM (test code = 2231) 141 MEQ/L POTASSIUM (test code = 2228) 4.6 MEQ/L CHLORIDE (test code = 2215) 104 MEQ/L CARBON DIOXIDE (test code = 2206) 25 MEQ/L CALCIUM (test code = 2209) 10.0 MG/DL PROTEIN, TOTAL (test code = 2229) 6.8 G/DL ALBUMIN (test code = 2201) 4.6 G/DL CALC GLOBULIN (test code = 2240) 2.2 G/DL CALC A/G RATIO (test code = 2234) 2.1 RATIO BILIRUBIN, TOTAL (test code = 2207) 0.4 MG/DL ALKALINE PHOSPHATASE (test code = 2204) 62 U/L AST (test code = 2218) 21 U/L ALT (test code = 2219) 26 U/L Calvin CollinsTSH, THIRD [id number] 00:00:00* Test Item Value Reference Range Interpretation Comme nts TSH, THIRD GENERATION (test code = 2821) 1.510 UIU/ML Calvin CollinsCBC W/AUTO [id number] 00:00:00* Test Item Value Reference Range Interpretation Comme nts WBC (test code = 1001) 7.3 K/UL RBC (test code = 1002) 3.80 M/UL HEMOGLOBIN (test code = 1003) 12.7 G/DL HEMATOCRIT (test code = 1004) 37.9 % MCV (test code = 1005) 99.7 fL MCH (test code = 1006) 33.4 PG MCHC (test code = 1007) 33.5 G/DL RDW (test code = 1038) 12.8 % NEUTROPHILS (test code = 1008) 48.1 % LYMPHOCYTES (test code = 1010) 40.3 % MONOCYTES (test code = 1011) 6.0 % EOSINOPHILS (test code = 1012) 4.7 % BASOPHILS (test code = 1013) 0.8 % IMMATURE GRANULOCYTES (test code = 1036) 0.1 % NUCLEATED RBCS (test code = 1065) 0.0 /100WBC'S PLATELET COUNT (test code = 1015) 281 K/UL ABSOLUTE NEUTROPHILS (test c ode = 1066) 3.50 K/UL ABSOLUTE LYMPHOCYTES (test c ode = 1067) 2.94 K/UL ABSOLUTE MONOCYTES (test cod e = 1068) 0.44 K/UL ABSOLUTE EOSINOPHILS (test c ode = 1040) 0.34 K/UL ABSOLUTE BASOPHILS (test cod e = 1069) 0.06 K/UL ABS IMMATURE GRANULOCYTES (t est code = 1020) 0.01 K/UL ABS NUCLEATED RBCS (test cod e = 19924) 0.00 K/UL Calvin CollinsHEMOGLOBIN [id number] 00:00:00* Test Item Value Reference Range Interpretation Comme nts HEMOGLOBIN A1c (test code = 97876) 6.0 % Calvin CollinsLIPID [id number] 00:00:00* Test Item Value Reference Range Interpretation Comme nts CHOLESTEROL (test code = 2210) 191 MG/DL TRIGLYCERIDES (test code = 2232) 238 MG/DL HDL CHOLESTEROL (test code = 2220) 45 MG/DL CALC LDL CHOL (test code = 2237) 110 MG/DL RISK RATIO LDL/HDL (test cod e = 2238) 2.44 RATIO Calvin CollinsCOMPREHENSIVE METABOLIC [id number] 00:00:00* Test Item Value Reference Range Interpretation Comme nts GLUCOSE (test code = 2217) 108 MG/DL BUN (test code = 2208) 18 MG/DL CREATININE (test code = 2214) 1.03 MG/DL eGFR (2020 CKD-EPI) (test co de = 52172) 60 ML/MIN/1.73 CALC BUN/CREAT (test code = 2235) 17 RATIO SODIUM (test code = 2231) 141 MEQ/L POTASSIUM (test code = 2228) 4.6 MEQ/L CHLORIDE (test code = 2215) 104 MEQ/L CARBON DIOXIDE (test code = 2206) 25 MEQ/L CALCIUM (test code = 2209) 10.0 MG/DL PROTEIN, TOTAL (test code = 2229) 6.8 G/DL ALBUMIN (test code = 2201) 4.6 G/DL CALC GLOBULIN (test code = 2240) 2.2 G/DL CALC A/G RATIO (test code = 2234) 2.1 RATIO BILIRUBIN, TOTAL (test code = 2207) 0.4 MG/DL ALKALINE PHOSPHATASE (test code = 2204) 62 U/L AST (test code = 2218) 21 U/L ALT (test code = 2219) 26 U/L Calvin PyleH, THIRD [id number] 00:00:00* Test Item Value Reference Range Interpretation Comme nts TSH, THIRD GENERATION (test code = 2821) 1.510 UIU/ML Calvin CollinsCBC W/AUTO [id number] 00:00:00* Test Item Value Reference Range Interpretation Comme nts WBC (test code = 1001) 7.3 K/UL RBC (test code = 1002) 3.80 M/UL HEMOGLOBIN (test code = 1003) 12.7 G/DL HEMATOCRIT (test code = 1004) 37.9 % MCV (test code = 1005) 99.7 fL MCH (test code = 1006) 33.4 PG MCHC (test code = 1007) 33.5 G/DL RDW (test code = 1038) 12.8 % NEUTROPHILS (test code = 1008) 48.1 % LYMPHOCYTES (test code = 1010) 40.3 % MONOCYTES (test code = 1011) 6.0 % EOSINOPHILS (test code = 1012) 4.7 % BASOPHILS (test code = 1013) 0.8 % IMMATURE GRANULOCYTES (test code = 1036) 0.1 % NUCLEATED RBCS (test code = 1065) 0.0 /100WBC'S PLATELET COUNT (test code = 1015) 281 K/UL ABSOLUTE NEUTROPHILS (test c ode = 1066) 3.50 K/UL ABSOLUTE LYMPHOCYTES (test c ode = 1067) 2.94 K/UL ABSOLUTE MONOCYTES (test cod e = 1068) 0.44 K/UL ABSOLUTE EOSINOPHILS (test c ode = 1040) 0.34 K/UL ABSOLUTE BASOPHILS (test cod e = 1069) 0.06 K/UL ABS IMMATURE GRANULOCYTES (t est code = 1020) 0.01 K/UL ABS NUCLEATED RBCS (test cod e = 59960) 0.00 K/UL Calvin CollinsHEMOGLOBIN [id number] 00:00:00* Test Item Value Reference Range Interpretation Comme nts HEMOGLOBIN A1c (test code = 20910) 6.0 % Calvin CollinsLIPID [id number] 00:00:00* Test Item Value Reference Range Interpretation Comme nts CHOLESTEROL (test code = 2210) 191 MG/DL TRIGLYCERIDES (test code = 2232) 238 MG/DL HDL CHOLESTEROL (test code = 2220) 45 MG/DL CALC LDL CHOL (test code = 2237) 110 MG/DL RISK RATIO LDL/HDL (test cod e = 2238) 2.44 RATIO Calvin CollinsCOMPREHENSIVE METABOLIC [id number] 00:00:00* Test Item Value Reference Range Interpretation Comme nts GLUCOSE (test code = 2217) 108 MG/DL BUN (test code = 2208) 18 MG/DL CREATININE (test code = 2214) 1.03 MG/DL eGFR (2020 CKD-EPI) (test co de = 92912) 60 ML/MIN/1.73 CALC BUN/CREAT (test code = 2235) 17 RATIO SODIUM (test code = 2231) 141 MEQ/L POTASSIUM (test code = 2228) 4.6 MEQ/L CHLORIDE (test code = 2215) 104 MEQ/L CARBON DIOXIDE (test code = 2206) 25 MEQ/L CALCIUM (test code = 2209) 10.0 MG/DL PROTEIN, TOTAL (test code = 2229) 6.8 G/DL ALBUMIN (test code = 2201) 4.6 G/DL CALC GLOBULIN (test code = 2240) 2.2 G/DL CALC A/G RATIO (test code = 2234) 2.1 RATIO BILIRUBIN, TOTAL (test code = 2207) 0.4 MG/DL ALKALINE PHOSPHATASE (test code = 2204) 62 U/L AST (test code = 2218) 21 U/L ALT (test code = 2219) 26 U/L Calvin Nuno AustinTSH, THIRD [id number] 00:00:00* Test Item Value Reference Range Interpretation Comme nts TSH, THIRD GENERATION (test code = 2821) 1.510 UIU/ML Calvin CollinsCBC W/AUTO [id number] 00:00:00* Test Item Value Reference Range Interpretation Comme nts WBC (test code = 1001) 7.3 K/UL RBC (test code = 1002) 3.80 M/UL HEMOGLOBIN (test code = 1003) 12.7 G/DL HEMATOCRIT (test code = 1004) 37.9 % MCV (test code = 1005) 99.7 fL MCH (test code = 1006) 33.4 PG MCHC (test code = 1007) 33.5 G/DL RDW (test code = 1038) 12.8 % NEUTROPHILS (test code = 1008) 48.1 % LYMPHOCYTES (test code = 1010) 40.3 % MONOCYTES (test code = 1011) 6.0 % EOSINOPHILS (test code = 1012) 4.7 % BASOPHILS (test code = 1013) 0.8 % IMMATURE GRANULOCYTES (test code = 1036) 0.1 % NUCLEATED RBCS (test code = 1065) 0.0 /100WBC'S PLATELET COUNT (test code = 1015) 281 K/UL ABSOLUTE NEUTROPHILS (test c ode = 1066) 3.50 K/UL ABSOLUTE LYMPHOCYTES (test c ode = 1067) 2.94 K/UL ABSOLUTE MONOCYTES (test cod e = 1068) 0.44 K/UL ABSOLUTE EOSINOPHILS (test c ode = 1040) 0.34 K/UL ABSOLUTE BASOPHILS (test cod e = 1069) 0.06 K/UL ABS IMMATURE GRANULOCYTES (t est code = 1020) 0.01 K/UL ABS NUCLEATED RBCS (test cod e = 34529) 0.00 K/UL Calvin CollinsHEMOGLOBIN [id number] 00:00:00* Test Item Value Reference Range Interpretation Comme nts HEMOGLOBIN A1c (test code = 16009) 6.0 % Calvin CollinsLIPID [id number] 00:00:00* Test Item Value Reference Range Interpretation Comme nts CHOLESTEROL (test code = 2210) 191 MG/DL TRIGLYCERIDES (test code = 2232) 238 MG/DL HDL CHOLESTEROL (test code = 2220) 45 MG/DL CALC LDL CHOL (test code = 2237) 110 MG/DL RISK RATIO LDL/HDL (test cod e = 2238) 2.44 RATIO Calvin CollinsCOMPREHENSIVE METABOLIC [id number] 00:00:00* Test Item Value Reference Range Interpretation Comme nts GLUCOSE (test code = 2217) 108 MG/DL BUN (test code = 2208) 18 MG/DL CREATININE (test code = 2214) 1.03 MG/DL eGFR (2020 CKD-EPI) (test co de = 34568) 60 ML/MIN/1.73 CALC BUN/CREAT (test code = 2235) 17 RATIO SODIUM (test code = 2231) 141 MEQ/L POTASSIUM (test code = 2228) 4.6 MEQ/L CHLORIDE (test code = 2215) 104 MEQ/L CARBON DIOXIDE (test code = 2206) 25 MEQ/L CALCIUM (test code = 2209) 10.0 MG/DL PROTEIN, TOTAL (test code = 2229) 6.8 G/DL ALBUMIN (test code = 2201) 4.6 G/DL CALC GLOBULIN (test code = 2240) 2.2 G/DL CALC A/G RATIO (test code = 2234) 2.1 RATIO BILIRUBIN, TOTAL (test code = 2207) 0.4 MG/DL ALKALINE PHOSPHATASE (test code = 2204) 62 U/L AST (test code = 2218) 21 U/L ALT (test code = 2219) 26 U/L Calvin ColilnsTSH, THIRD [id number] 00:00:00* Test Item Value Reference Range Interpretation Comme nts TSH, THIRD GENERATION (test code = 2821) 1.510 UIU/ML Calvin CollinsCBC W/AUTO [id number] 00:00:00* Test Item Value Reference Range Interpretation Comme nts WBC (test code = 1001) 7.3 K/UL RBC (test code = 1002) 3.80 M/UL HEMOGLOBIN (test code = 1003) 12.7 G/DL HEMATOCRIT (test code = 1004) 37.9 % MCV (test code = 1005) 99.7 fL MCH (test code = 1006) 33.4 PG MCHC (test code = 1007) 33.5 G/DL RDW (test code = 1038) 12.8 % NEUTROPHILS (test code = 1008) 48.1 % LYMPHOCYTES (test code = 1010) 40.3 % MONOCYTES (test code = 1011) 6.0 % EOSINOPHILS (test code = 1012) 4.7 % BASOPHILS (test code = 1013) 0.8 % IMMATURE GRANULOCYTES (test code = 1036) 0.1 % NUCLEATED RBCS (test code = 1065) 0.0 /100WBC'S PLATELET COUNT (test code = 1015) 281 K/UL ABSOLUTE NEUTROPHILS (test c ode = 1066) 3.50 K/UL ABSOLUTE LYMPHOCYTES (test c ode = 1067) 2.94 K/UL ABSOLUTE MONOCYTES (test cod e = 1068) 0.44 K/UL ABSOLUTE EOSINOPHILS (test c ode = 1040) 0.34 K/UL ABSOLUTE BASOPHILS (test cod e = 1069) 0.06 K/UL ABS IMMATURE GRANULOCYTES (t est code = 1020) 0.01 K/UL ABS NUCLEATED RBCS (test cod e = 57630) 0.00 K/UL Calvin CollinsHEMOGLOBIN [id number] 00:00:00* Test Item Value Reference Range Interpretation Comme nts HEMOGLOBIN A1c (test code = 50519) 6.0 % Calvin CollinsLIPID [id number] 00:00:00* Test Item Value Reference Range Interpretation Comme nts CHOLESTEROL (test code = 2210) 191 MG/DL TRIGLYCERIDES (test code = 2232) 238 MG/DL HDL CHOLESTEROL (test code = 2220) 45 MG/DL CALC LDL CHOL (test code = 2237) 110 MG/DL RISK RATIO LDL/HDL (test cod e = 2238) 2.44 RATIO Calvin CollinsCOMPREHENSIVE METABOLIC [id number] 00:00:00* Test Item Value Reference Range Interpretation Comme nts GLUCOSE (test code = 2217) 108 MG/DL BUN (test code = 2208) 18 MG/DL CREATININE (test code = 2214) 1.03 MG/DL eGFR (2020 CKD-EPI) (test co de = 25587) 60 ML/MIN/1.73 CALC BUN/CREAT (test code = 2235) 17 RATIO SODIUM (test code = 2231) 141 MEQ/L POTASSIUM (test code = 2228) 4.6 MEQ/L CHLORIDE (test code = 2215) 104 MEQ/L CARBON DIOXIDE (test code = 2206) 25 MEQ/L CALCIUM (test code = 2209) 10.0 MG/DL PROTEIN, TOTAL (test code = 2229) 6.8 G/DL ALBUMIN (test code = 2201) 4.6 G/DL CALC GLOBULIN (test code = 2240) 2.2 G/DL CALC A/G RATIO (test code = 2234) 2.1 RATIO BILIRUBIN, TOTAL (test code = 2207) 0.4 MG/DL ALKALINE PHOSPHATASE (test code = 2204) 62 U/L AST (test code = 2218) 21 U/L ALT (test code = 2219) 26 U/L Calvin CollinsTSH, THIRD [id number] 00:00:00* Test Item Value Reference Range Interpretation Comme nts TSH, THIRD GENERATION (test code = 2821) 1.510 UIU/ML Calvin CollinsCBC W/AUTO [id number] 00:00:00* Test Item Value Reference Range Interpretation Comme nts WBC (test code = 1001) 7.3 K/UL RBC (test code = 1002) 3.80 M/UL HEMOGLOBIN (test code = 1003) 12.7 G/DL HEMATOCRIT (test code = 1004) 37.9 % MCV (test code = 1005) 99.7 fL MCH (test code = 1006) 33.4 PG MCHC (test code = 1007) 33.5 G/DL RDW (test code = 1038) 12.8 % NEUTROPHILS (test code = 1008) 48.1 % LYMPHOCYTES (test code = 1010) 40.3 % MONOCYTES (test code = 1011) 6.0 % EOSINOPHILS (test code = 1012) 4.7 % BASOPHILS (test code = 1013) 0.8 % IMMATURE GRANULOCYTES (test code = 1036) 0.1 % NUCLEATED RBCS (test code = 1065) 0.0 /100WBC'S PLATELET COUNT (test code = 1015) 281 K/UL ABSOLUTE NEUTROPHILS (test c ode = 1066) 3.50 K/UL ABSOLUTE LYMPHOCYTES (test c ode = 1067) 2.94 K/UL ABSOLUTE MONOCYTES (test cod e = 1068) 0.44 K/UL ABSOLUTE EOSINOPHILS (test c ode = 1040) 0.34 K/UL ABSOLUTE BASOPHILS (test cod e = 1069) 0.06 K/UL ABS IMMATURE GRANULOCYTES (t est code = 1020) 0.01 K/UL ABS NUCLEATED RBCS (test cod e = 41913) 0.00 K/UL Calvin CollinsHEMOGLOBIN [id number] 00:00:00* Test Item Value Reference Range Interpretation Comme nts HEMOGLOBIN A1c (test code = 36777) 6.0 % Calvin Collins
[2024-10-29] MEDS ORDERED: METOCLOPRAMIDE 10 MG/2mL INJ ONE (10:56)
[2024-10-29] MEDS ORDERED: DIPHENHYDRAMINE 50 MG/ML VIAL ONE (10:56)
[2024-10-29] MEDS ORDERED: FENTANYL CITR 100 MCG/2 ML ONE (10:57)
--- NOTE | 2024-10-29 11:15 | RAD REPORT ---
EXAMINATION: ONE VIEW CHEST XR CLINICAL INDICATION: Female, 68 years old.,CHEST PAIN TECHNIQUE: Frontal chest projection is submitted. Examination is limited by patient positioning and t echnique. COMPARISON: 04/09/2015 FINDINGS: The lungs are well inflated and clear. No pneumothorax or sizable effusion. The heart is normal in s ize. Mediastinal contours are unremarkable. IMPRESSION: No acute intrathoracic abnormalities.
--- NOTE | 2024-10-29 11:17 | RAD REPORT ---
EXAM: CT Ct Stroke Brain Wo Cont HISTORY: STROKE ALERT COMPARISON: TECHNIQUE: Multiple contiguous axial images were obtained for a CT of the brain without contrast. Sag ittal and coronal reformats were performed. One or more of the following dose reduction techniques were used: Automated exposure control, adjus tment of the mA and kV according to patient size, and iterative reconstruction. Unless otherwise specified, incidental findings do not require dedicated imaging follow-up. FINDINGS: Motion artifact somewhat limits evaluation near the vertex. No evidence of hydrocephalus, intracranial hemorrhage, or extra-axial fluid collection. Mild brain atrophy with mild periventricular and deep white matter chronic microvascular ischemic ch anges present. The calvarium is intact. The visualized paranasal sinuses and mastoid air cells are essentially clear . IMPRESSION: No evidence of acute intracranial abnormality. THIS REPORT CONTAINS FINDINGS THAT MAY BE CRITICAL TO PATIENT CARE. The findings were verbally commun icated via telephone to Rubén Brewer on 10/29/2024 11:12 AM.
[2024-10-29 11:28] LABS: PT Prothrombin Time 11.4 SECONDS (9.4-12.5); Protime INR 1.02
[2024-10-29 11:30] LABS: Absolute Eosinophils 0.3 K/uL (0-0.5); Absolute Lymphocytes (CBC) 3.2 K/uL (0.7-4.9); Absolute Monocytes 0.5 K/uL (0.1-1.3); Basophils % 0.6 % (0-1.3); Eosinophils % 4.2 % (0-4.4); Hematocrit 38.2 % (36.0-45.0); Hemoglobin 13.1 g/dL (12.0-15.0); Lymphocytes % 39.4 % (15.3-44.8); MCH 33.9 pg (27.0-35.0); MCHC 34.3 g/dL (32.0-36.0); MCV 98.7 fL (80-100); MPV 7.9 fL (7.6-11.3); Monocytes % 6.3 % (3.3-12.3); Neutrophils % 49.5 % (41.7-73.7); Nucleated Red Blood Cells % 0.2 % (0-0); Platelets 263 thou/uL (152-406); RBC Red Blood Cell Count 3.86 M/uL (3.86-4.86); Red Cell Distribution Width 13.3 % (12.1-15.2)
[2024-10-29 11:42] LABS: PTT, Activated Partial Thromb 30.8 SECONDS (24.3-36.9)
[2024-10-29 11:51] LABS: Anion Gap 7.1 mEq/L (5.0-15.0); Potassium 4.1 mEq/L (3.5-5.1)
[2024-10-29 11:53] LABS: Troponin High Sensitivity 87.5 pg/mL (<58.9)
[2024-10-29] MEDS ORDERED: ASPIRIN 81 MG CHEWABLE TABLET ONE (12:11)
--- NOTE | 2024-10-29 12:21 | RAD REPORT ---
EXAMINATION: CTA HEAD CLINICAL INDICATION: Female, 68 years old. dizziness, dysmetria, lkw 13h ago TECHNIQUE: Axial CT images were obtained through the head after intravenous contrast utilizing angiog raphic protocol with 3D post-processing (maximum intensity projection images, volume rendered images and/or shaded surface rendered images). One or more of the following dose reduction technique s were used: Automated exposure control, adjustment of the mA and/or kV according to patient size, and/or iterative reconstruction. Unless otherwise specified, incidental findings do not require dedic ated imaging follow-up. COMPARISON: Noncontrast head CT of the same day FINDINGS: ICA: The petrous, cavernous, and supraclinoid segments of the bilateral internal carotid arteries are normal. LATANYA: Anterior cerebral arteries are normal bilaterally. The anterior communicating artery is patent. MCA: Middle cerebral arteries are normal bilaterally. QA [employer] DEVELOPER: Posterior cerebral arteries are normal bilaterally. Vertebrobasilar: The vertebral arteries are patent. The basilar artery is normal in appearance. 3D images confirm these findings. IMPRESSION: Normal head CTA.
--- NOTE | 2024-10-29 12:29 | RAD REPORT ---
EXAMINATION: CT Neck Angio CLINICAL INDICATION: Female, 68 years old. [facility] MAIN dizziness, dysmetria, lkw 13h ago Bed Name: 15 TECHNIQUE: Axial CT images were obtained from the aortic arch to the skull base after intravenous con trast utilizing angiographic protocol. Multiplanar reformats, as well as 3D post-processing (maximum intensity projection images, volume rendered images and/or shaded surface rendered images) w ere generated and reviewed. One or more of the following dose reduction techniques were used: Automated exposure control, adjustment of the mA and/or kV according to patient size, and/or iterativ e reconstruction. Unless otherwise specified, incidental findings do not require dedicated imaging follow-up. COMPARISON: No prior exam. FINDINGS: AORTA: The imaged aortic arch is normal. Normal three-vessel configuration of the arch. CCA: No artifact The common carotid arteries are patent and normal in caliber. ICA/ECA: Moderate calcified atherosclerotic plaque at the carotid bulbs and left more than right prox imal ICAs. Focal stenosis of the proximal left ICA with narrowest luminal diameter 1.8 mm compared to 4.3 mm luminal diameter more distally, amounting to 59% stenosis. No significant stenosis exceedin g 50% of the right proximal ICA. VERTEBRAL: Near nonopacification of the vertebral arteries along their proximal V1 segments bilateral ly, may in part be related to a combination of motion and beam hardening artifact. The cervical vertebral arteries are otherwise patent to the skull base. Left vertebral artery is dominant. Early t akeoff of the right PICA, probably proximal to the pleural entry, following which the right vertebral artery shows diminutive luminal caliber. SOFT TISSUE: No significant neck soft tissue abnormalities. The visualized lung apices are clear. 3D images confirm these findings. IMPRESSION: Moderate atherosclerotic plaque of the carotid bulbs and proximal ICAs, with up to 59% stenosis of th e left proximal ICA. No significant stenosis exceeding 50% of the right ICA. Near nonopacification of the proximal cervical vertebral arteries, may in part be related to a combin ation of motion and beam hardening artifact. Vessels are patent more distally starting mid to distal V1 segments. NASCET criteria used to quantify ICA stenosis, with the following grading scheme: Mild 0-49% stenosis Moderate 50-69% stenosis Severe 70-99% stenosis Reference: [place] Symptomatic Carotid Endarterectomy Trial Collaborators; Haven RODRIGUEZM, Radha TAYLOR, Dustin SALDAÑA, et al. Beneficial effect of carotid endarterectomy in symptomatic patients with high-grade carotid stenosis. N Engl J Med. 1990Jun 10;325(7):445-53.
--- NOTE | 2024-10-29 12:33 | ER ---
Nurse's Notes [facility] Name: Ольга Cruz Age: 68 yrs Sex: Female : 1955 Arrival Date: 10/29/2024 Time: 10:10 Bed 15 Private MD: Diagnosis: Vertigo, Vertibrobasilar Insufficiency, NSTEMI Presentation: 10/29 10:25 Chief complaint: Patient states: chest tightness X 3 days, woke up this morning with iw dizziness and nausea , went to [facility] and they did a EKG and was normal, was told to come to ER for evaluation. Coronavirus screen: At this time, the client does not indicate any symptoms associated with coronavirus-19. Ebola Screen: No symptoms or risks identified at this time. Initial Sepsis Screen: Does the patient meet any 2 criteria? No. Patient's initial sepsis screen is negative. Does the patient have a suspected source of infection? No. Patient's initial sepsis screen is negative. Risk Assessment: Do you want to hurt yourself or someone else? Patient reports no desire to harm self or others. Onset of symptoms was October 29, 2024. 10:25 Method Of Arrival: Wheelchair iw 10:25 Acuity: JAMIE 3 iw Historical: - Allergies: 10:27 Codeine; iw - PMHx: 10:27 Hypertensive disorder; GERD; Hypercholesterolemia; Arthritis; psoriasis; endometriosis; iw - PSHx: 10:27 tubal; hysterectomy; elías knee; bladder; iw - Immunization history:: Adult Immunizations up to date. - Infectious Disease History:: Denies. - Social history:: Smoking status: Patient/guardian denies using tobacco, the patient reports quitting approximately 6 years ago. Screenin:05 VAN Screening: Arm Drift: Patient shows no arm weakness. Patient is VAN negative. kc6 Visual Disturbance: No visual disturbance noted. Aphasia: No aphasia noted. Neglect: No neglect noted. [place] Swallow Protocol Brief Cognitive Screen What is your name? Normal, Where are you right now? Normal, What year is it? Normal. Oral Mechanism Examination Facial Symmetry: Normal, Motion: Normal, Lip Closure: Normal, Oral Mechanism Result: Normal. 3 oz Water Swallow Challenge: Pt able to drink all water without stopping, coughing, choking or throat clearing: Yes Result: PASS MD Notified: Rubén Brewer MD. 11:15 [facility] ED Fall Risk Assessment (Adult) History of falling in the last 3 months, kc6 including since admission No falls in past 3 months (0 pts) Confusion or Disorientation No (0 pts) Intoxicated or Sedated No (0 pts) Impaired Gait No (0 pts) Mobility Assist Device Used No (0 pt) Altered Elimination No (0 pt) Score/Fall Risk Level 0 - 2 = Low Risk Oriented to surroundings, Maintained a safe environment. Abuse screen: Denies threats or abuse. Denies injuries from another. Nutritional screening: No deficits noted. Tuberculosis screening: No symptoms or risk factors identified. Assessment: 10:37 Reassessment: Code stroke called , LKW [id number] yesterday. ld1 11:05 General: Appears in no apparent distress. uncomfortable, well groomed, well developed, kc6 Behavior is calm, cooperative, appropriate for age. Pain: Denies pain. Neuro: Level of Consciousness is awake, alert, obeys commands, Oriented to person, place, time, situation, Appropriate for age Railroad Repairer are equal bilaterally Moves all extremities. Full function Gait is steady, Speech is normal, Facial symmetry appears normal, Pupils are PERRLA, Intact Babinski is positive Reports dizziness. Cardiovascular: Reports chest pain, Denies shortness of breath, Capillary refill < 3 seconds Rhythm is regular. Respiratory: Airway is patent Trachea midline Respiratory effort is even, unlabored, Respiratory pattern is regular, symmetrical. GI: Abdomen is flat, non-distended, Pt is actively vomiting clear fluid, Reports nausea, vomiting, Patient currently denies abdominal pain, diarrhea. : No signs and/or symptoms were reported regarding the genitourinary system. EENT: No signs and/or symptoms were reported regarding the EENT system. Derm: No signs and/or symptoms reported regarding the dermatologic system. Skin is intact, is healthy with good turgor, Skin is pink, warm \T\ dry. Musculoskeletal: No signs and/or symptoms reported regarding the musculoskeletal system. Circulation, motion, and sensation intact. Capillary refill < 3 seconds, Range of motion: intact in all extremities. 12:13 Reassessment: Patient appears in no apparent distress at this time. No changes from kc6 previously documented assessment. Patient and/or family updated on plan of care and expected duration. Pain level reassessed. Patient is alert, oriented x 3, equal unlabored respirations, skin warm/dry/pink. 13:13 Reassessment: Patient appears in no apparent distress at this time. No changes from kc6 previously documented assessment. Patient and/or family updated on plan of care and expected duration. Pain level reassessed. Patient is alert, oriented x 3, equal unlabored respirations, skin warm/dry/pink. 14:13 Reassessment: Patient appears in no apparent distress at this time. No changes from kc6 previously documented assessment. Patient and/or family updated on plan of care and expected duration. Pain level reassessed. Patient is alert, oriented x 3, equal unlabored respirations, skin warm/dry/pink. Vital Signs: 10:25 BP 157 / 115; Pulse 66; Resp 18; Temp 98.1; Weight 92.53 kg; Height 5 ft. 6 in. ; Pain iw 0/10; 11:15 BP 159 / 58; Pulse 59; Resp 16 S; Pulse Ox 96% on R/A; kc6 12:13 BP 135 / 49; Pulse 67; Resp 16 S; Pulse Ox 98% on R/A; kc6 12:25 BP 155 / 51; Pulse 67; Resp 20 S; Pulse Ox 100% on R/A; kc6 14:47 BP 121 / 45; Pulse 66; Resp 16 S; Pulse Ox 100% on R/A; kc6 10:25 Body Mass Index 32.93 (92.53 kg, 167.64 cm) iw 10:25 Pain Scale: Adult iw NIH Stroke Scale Scores: 11:05 NIHSS Score: 0 kc6 ED Course: 10:12 Patient arrived in ED. ra3 10:12 Rubén Brewer MD is Attending Physician. ec2 10:27 Triage completed. iw 10:29 Arm band placed on. iw 10:44 XRAY Chest (1 view) In Process Unspecified. EDMS 11:00 Report received from Deloris Mota RN. kc6 11:01 CT Stroke Brain w/o Contrast In Process Unspecified. EDMS 11:14 Micki Nicholson, NAVJOT is Primary Nurse. kc6 11:14 Inserted saline lock: 20 gauge in right antecubital area, using aseptic technique. kc6 Blood collected. Flushed with 10 mL NS. Patient maintains SpO2 saturation greater than 95% on room air. 11:15 Patient has correct armband on for positive identification. Placed in gown. Bed in low kc6 position. Call light in reach. Side rails up X 1. Adult w/ patient. hospital monitor on. Pulse ox on. NIBP on. Door closed. Noise minimized. Lights dimmed. Warm blanket given. Pillow given. Repositioned patient. Cleaned of incontinence. Linen changed. 11:55 CT Head Angio In Process Unspecified. EDMS 11:56 CT Neck Angio In Process Unspecified. EDMS 12:32 Darleen Pisano is Hospitalizing Provider. ec2 14:50 attempted to initiate a transfer with the [facility]' Transfer placed on auto hold then eb call dropped after 3 minutes. 14:54 initiated a transfer with Arleen from the [facility] transfer center. eb 15:45 Removal of peripheral IV. Catheter intact, dressing applied. kc6 15:45 Inserted saline lock: 22 gauge in right forearm, using aseptic technique. Flushed with kc6 10 mL NS. 16:03 Darleen Pisano is Hospitalizing Provider. ec2 16:24 Brain Wo Cont In Process Unspecified. EDMS Administered Medications: 11:14 Drug: metoCLOPramide IVP 10 mg IVP once; over 1 to 2 minutes Route: IVP; Site: right kc6 antecubital; 12:25 Follow up: Response: No adverse reaction kc6 11:14 Drug: diphenhydrAMINE IVP 25 mg IVP once Route: IVP; Site: right antecubital; kc6 12:25 Follow up: Response: No adverse reaction kc6 11:56 Not Given (Patient Refused): fentanyl (pf)25 mcg IVP once kc6 12:17 Drug: Aspirin PO Chewable Tablet 324 mg PO once; 81 mg tablets x 4 Route: PO; kc6 13:15 Follow up: Response: No adverse reaction kc6 14:23 Not Given (Physician Discretion): ativan1 mg IVP once kc6 14:23 Not Given (Physician Discretion): ondansetron 4 mg IVP once; over 2 minutes kc6 15:44 Drug: Ativan IVP 1 mg IVP once Route: IVP; Site: right forearm; kc6 15:44 Drug: Ondansetron IVP 4 mg IVP once; over 2 minutes Route: IVP; Site: right forearm; kc6 16:15 Drug: Heparin (DVT/PE Drip) 18 units/kg/hr - ([place] [address] units, D5W IV 500 ml) IV kc6 at calculated rate Per protocol; Max initial rate 1800 units/hr {Co-Signature: 1 (Florinda Patel RN).} Route: IV; Rate: calculated rate; Site: right forearm; Outcome: 12:33 Decision to Hospitalize by Provider. ec2 13:52 ER care complete, transfer ordered by . ec2 16:03 Decision to Hospitalize by Provider. ec2 18:06 Patient left the ED. ld1 NIH Stroke Scale - NIH Stroke Score Date: 10/29/2024 Time: 11:05 Total Score = 0 10. Dysarthria (speech clarity - read or repeat words) - 0(Normal) 11. Extinction and Inattention (visual/tactile/auditory/spatial/personal) - 0(No abnormality) 1a. Level of Consciousness (LOC) - 0(Alert) 1b. Level of Consciousness (LOC) (Month \T\ Age) - 0(Both) 1c. LOC Commands (Open \T\ Closes Eyes/3D Modeler) - 0(Both) 2. Best Gaze (Lateral Gaze Paresis) - 0(Normal) 3. Visual Field Loss - 0(No visual loss) 4. Facial Palsy - 0(Normal) 5a. Left Arm: Motor (10-second hold) - 0(No drift) 5b. Right Arm: Motor (10-second hold) - 0(No drift) 6a. Left Leg: Motor (5-second hold - always test supine) - 0(No drift) 6b. Right Leg: Motor (5-second hold - always test supine) - 0(No drift) 7. Limb Ataxia (finger/nose \T\ heel/roque - test with eyes open) - 0(Absent) 8. Sensory Loss (pinprick arms/legs/face) - 0(Normal) 9. Best Language: Aphasia (description/naming/reading) - 0(No aphasia) Initials: kc6 Signatures: Dispatcher [employer] Beulah Nolen RN RN iw Botello, Elizabeth eb Sims, Lauren, RN RN ld1 Micki Nicholson RN RN kc6 Rubén Brewer MD MD ec2 Esperanza Victoria ra3 Florinda Patel RN me1 Corrections: (The following items were deleted from the chart) 11:18 11:05 Cardiovascular: Denies chest pain, shortness of breath, Capillary refill kc6 < 3 seconds kc6
--- NOTE | 2024-10-29 12:33 | EDPHYS ---
Physician Documentation [facility] Name: Ольга Cruz Age: 68 yrs Sex: Female : 1955 Arrival Date: 10/29/2024 Time: 10:10 Bed 15 Private MD: ED Physician Rubén Brewer HPI: 10/29 10:39 This 68 yrs old Female presents to ER via Wheelchair with complaints of Chest ec2 Tightness, Nausea, Dizziness. 10:40 Patient arrives today for chest tightness and dizziness. Patient reports dizziness ec2 started this morning on awakening at 0600. States that she last was known well approximately 13 hours prior to arrival at 9:30 PM last night. Patient reports she feels dizzy like the room is spinning around her. Not on blood thinners. No history of stroke. Does have a history of ACS, reports no cardiac stents. No blood thinners. Reports some chest tightness as well that started over the past several weeks and has been intermittent. Historical: - Allergies: 10:27 Codeine; iw - PMHx: 10:27 Hypertensive disorder; GERD; Hypercholesterolemia; Arthritis; psoriasis; endometriosis; iw - PSHx: 10:27 tubal; hysterectomy; elías knee; bladder; iw - Immunization history:: Adult Immunizations up to date. - Infectious Disease History:: Denies. - Social history:: Smoking status: Patient/guardian denies using tobacco, the patient reports quitting approximately 6 years ago. ROS: 10:40 Constitutional: as per hpi ec2 Exam: 10:40 Constitutional: GEN: NAD Head: atraumatic Eyes: EOMI Ears: External ears are ec2 normal. CV: regular rate LUNGS: no respiratory distress ABD: non-distended SKIN: no evidence of rashes MSK: no evidence of trauma. Neuro: Cranial nerves II through XII intact, dysmetria in the right upper extremity, tremulousness on the left upper extremity. No pronator drift appreciated. Vital Signs: 10:25 BP 157 / 115; Pulse 66; Resp 18; Temp 98.1; Weight 92.53 kg; Height 5 ft. 6 in. ; Pain iw 0/10; 11:15 BP 159 / 58; Pulse 59; Resp 16 S; Pulse Ox 96% on R/A; kc6 12:13 BP 135 / 49; Pulse 67; Resp 16 S; Pulse Ox 98% on R/A; kc6 12:25 BP 155 / 51; Pulse 67; Resp 20 S; Pulse Ox 100% on R/A; kc6 14:47 BP 121 / 45; Pulse 66; Resp 16 S; Pulse Ox 100% on R/A; kc6 10:25 Body Mass Index 32.93 (92.53 kg, 167.64 cm) iw 10:25 Pain Scale: Adult iw NIH Stroke Scale Scores: 11:05 NIHSS Score: 0 kc6 MDM: 10:12 Medical Screening Exam initiated ec2 10:40 Data reviewed: vital signs, nurses notes. ED course: Patient arrives today for chest ec2 tightness and dizziness. Examination yields neurologic findings as above. Code stroke activated on my assessment. Patient is outside of TNK window at this time with a last known well of approximately 13 hours prior to arrival. Will obtain stroke workup as well as cardiac workup. Differential includes stroke, LVO, ACS, vertigo, electrolyte disturbances.. 10:42 ED course: EKG independently reviewed and interpreted by me, shows normal sinus rhythm, ec2 rate of 59, no acute ST segment elevations, intervals are nonactionable.. 11:26 ED course: CT scan of the head with no acute intracranial abnormality.. ec2 11:57 ED course: Troponin with slight elevation at 87.5. Will give the patient for ec2 assessment. Pending CT angio.. 12:32 ED course: CT angio of the head and neck are nonactionable. Will admit for stroke ec2 workup, NSTEMI. Discussed case with hospitalist, pending admission.. 13:51 ED course: Given symptoms and possible opacification of the arterial supply, ec2 hospitalist uncomfortable keeping patient here, will transfer patient for further neurologic evaluation.. 15:37 ED course: I discussed case with neurology and neurointerventional. The transfer center ec2 and they declined transfer at this time, recommend an MRI and stroke workup. Will proceed with MRI. 10/29 10:14 Order name: Basic Metabolic Panel; Complete Time: 11:57 ec2 10/29 10:14 Order name: CBC with Diff; Complete Time: 11:47 ec2 10/29 10:14 Order name: NT PRO-BNP; Complete Time: :57 ec2 10/29 10:14 Order name: PT-INR; Complete Time: 11:47 ec2 10/29 10:14 Order name: Troponin HS; Complete Time: 11:57 ec2 10/29 11:39 Order name: PTT, Activated Partial Thromb; Complete Time: 11:47 EDMS 10/29 15:50 Order name: Thyroid Stimulating Hormone EDMS 10/29 15:50 Order name: CBC with Automated Diff EDMS 10/29 15:50 Order name: CBC with Automated Diff EDMS 10/29 15:50 Order name: CBC with Automated Diff EDMS 10/29 15:50 Order name: CBC with Automated Diff EDMS 10/29 15:50 Order name: Comprehensive Metabolic Panel EDMS 10/29 15:50 Order name: Comprehensive Metabolic Panel EDMS 10/29 15:50 Order name: Comprehensive Metabolic Panel EDMS 10/29 15:50 Order name: Comprehensive Metabolic Panel EDMS 10/29 15:50 Order name: Lipid Profile EDMS 10/29 15:50 Order name: Lipid Profile EDMS 10/29 15:50 Order name: Magnesium EDMS 10/29 15:50 Order name: Magnesium EDMS 10/29 15:50 Order name: Magnesium EDMS 10/29 15:50 Order name: Magnesium EDMS 10/29 15:50 Order name: Protime (+INR) EDMS 10/29 15:50 Order name: Protime (+INR) EDMS 10/29 15:50 Order name: Troponin High Sensitivity EDMS 10/29 15:50 Order name: Troponin High Sensitivity EDMS 10/29 15:50 Order name: Troponin High Sensitivity EDMS 10/29 10:14 Order name: XRAY Chest (1 view); Complete Time: 11:26 ec2 10/29 10:39 Order name: CT Head Angio; Complete Time: 12:29 ec2 10/29 10:39 Order name: CT Neck Angio; Complete Time: 12:31 ec2 10/29 10:39 Order name: CT Stroke Brain w/o Contrast; Complete Time: 11:26 ec2 10/29 12:51 Order name: Echo with Doppler EDMS 10/29 16:21 Order name: Brain Wo Cont EDMS 10/29 16:31 Order name: ERT ORTHOSTATIC V/S EDMS 10/29 15:50 Order name: Physical Therapy Consult EDMS 10/29 10:14 Order name: Cardiac monitoring; Complete Time: 11:14 ec2 10/29 10:14 Order name: EKG - Nurse/Tech; Complete Time: 11:14 ec2 10/29 10:14 Order name: IV Saline Lock; Complete Time: 11: ec2 10/29 10:14 Order name: Labs collected and sent; Complete Time: 11:14 ec2 10/29 10:14 Order name: O2 Per Protocol; Complete Time: 10:46 ec2 10/29 10:14 Order name: O2 Sat Monitoring; Complete Time: :46 ec2 10/29 10:39 Order name: Accucheck; Complete Time: 11:14 ec2 10/29 10:39 Order name: NPO; Complete Time: 11:14 ec2 10/29 10:39 Order name: Stroke Swallow Screen; Complete Time: 11:14 ec2 Administered Medications: 11:14 Drug: metoCLOPramide IVP 10 mg IVP once; over 1 to 2 minutes Route: IVP; Site: right kc6 antecubital; 12:25 Follow up: Response: No adverse reaction kc6 11:14 Drug: diphenhydrAMINE IVP 25 mg IVP once Route: IVP; Site: right antecubital; kc6 12:25 Follow up: Response: No adverse reaction kc6 11:56 Not Given (Patient Refused): fentanyl (pf)25 mcg IVP once kc6 12:17 Drug: Aspirin PO Chewable Tablet 324 mg PO once; 81 mg tablets x 4 Route: PO; kc6 13:15 Follow up: Response: No adverse reaction kc6 14:23 Not Given (Physician Discretion): ativan1 mg IVP once kc6 14:23 Not Given (Physician Discretion): ondansetron 4 mg IVP once; over 2 minutes kc6 15:44 Drug: Ativan IVP 1 mg IVP once Route: IVP; Site: right forearm; kc6 15:44 Drug: Ondansetron IVP 4 mg IVP once; over 2 minutes Route: IVP; Site: right forearm; kc6 16:15 Drug: Heparin (DVT/PE Drip) 18 units/kg/[place] - ([place] [address] units, D5W IV 500 ml) IV kc6 at calculated rate Per protocol; Max initial rate 1800 units/hr {Co-Signature: me1 (Florinda Patel RN).} Route: IV; Rate: calculated rate; Site: right forearm; Disposition Summary: 10/29/24 16:03 Hospitalization Ordered Notes: Hospitalization Status: Inpatient Admission(10/29/24 16:03) ec2 Provider: Darleen Pisano(10/29/24 16:03) ec2 Location: Telemetry/MedSurg (Inpatient)(10/29/24 16:03) ec2 Condition: Stable(10/29/24 16:03) ec2 Problem: new(10/29/24 16:03) ec2 Symptoms: have improved(10/29/24 16:03) ec2 Bed/Room Type: Standard(10/29/24 16:03) ec2 [facility] Assignment: [facility](10/29/24 16:14) Diagnosis - Vertigo, Vertibrobasilar Insufficiency, NSTEMI ec2 Forms: - Medication Reconciliation Form ec2 - SBAR form ec2 - Leadership Thank You Letter ec2 NIH Stroke Scale - NIH Stroke Score Date: 10/29/2024 Time: 11:05 Total Score = 0 10. Dysarthria (speech clarity - read or repeat words) - 0(Normal) 11. Extinction and Inattention (visual/tactile/auditory/spatial/personal) - 0(No abnormality) 1a. Level of Consciousness (LOC) - 0(Alert) 1b. Level of Consciousness (LOC) (Month \T\ Age) - 0(Both) 1c. LOC Commands (Open \T\ Closes Eyes/Fiberglass Finisher) - 0(Both) 2. Best Gaze (Lateral Gaze Paresis) - 0(Normal) 3. Visual Field Loss - 0(No visual loss) 4. Facial Palsy - 0(Normal) 5a. Left Arm: Motor (10-second hold) - 0(No drift) 5b. Right Arm: Motor (10-second hold) - 0(No drift) 6a. Left Leg: Motor (5-second hold - always test supine) - 0(No drift) 6b. Right Leg: Motor (5-second hold - always test supine) - 0(No drift) 7. Limb Ataxia (finger/nose \T\ heel/roque - test with eyes open) - 0(Absent) 8. Sensory Loss (pinprick arms/legs/face) - 0(Normal) 9. Best Language: Aphasia (description/naming/reading) - 0(No aphasia) Initials: kc6 Signatures: Dispatcher [employer] EDMS Beulah Hughes, NAVJOT MORFIN iw Kateryna Chris Kaitlyn, RN RN kc6 Rubén Brewer MD MD ec2 Florinda Patel RN me1 Corrections: (The following items were deleted from the chart) 10:14 10:14 BASIC METABOLIC PANEL+C.LAB.BRZ ordered. EDMS EDMS 10:14 10:14 CBC+H.LAB.BRZ ordered. EDMS EDMS 10:14 10:14 PROBNP+C.LAB.BRZ ordered. EDMS EDMS 10:14 10:14 PROTIME (+INR)+COAG.LAB.BRZ ordered. EDMS EDMS 10:14 10:14 Troponin High Sensitivity+C.LAB.BRZ ordered. EDMS EDMS 10:14 10:14 Chest Single View+RAD.RAD.BRZ ordered. EDMT EDMS 10:39 10:39 Head Angio+CT.RAD.BRZ ordered. EDMS EDMS 10:39 10:39 Neck Angio+CT.RAD.BRZ ordered. EDMT EDMS 10:39 10:39 CT-STROKE BRAIN W/O CONTRAST+CT.RAD.BRZ ordered. EDMT EDMS 11:39 10:39 PTT, ACTIVATED+COAG.LAB.BRZ ordered. EDMT EDMS 13:51 12:33 Inpatient Admission ec2 ec2 13:51 12:33 Pisano, Il-Ran ec2 ec2 13:51 12:33 Telemetry/MedSurg (Inpatient) ec2 ec2 13:51 12:33 Stable ec2 ec2 13:51 12:33 new ec2 ec2 13:51 12:33 are unchanged ec2 ec2 13:51 12:33 Standard ec2 ec2 13:51 12:33 ec2 ec2 13:51 12:33 Vertigo, NSTEMI ec2 ec2 14:15 13:52 transferring doc ec2 ec2 16:02 13:52 [facility] ec2 ec2 16:02 13:52 Higher level of care ec2 ec2 16:02 13:52 Stable ec2 ec2 16:02 13:52 new ec2 ec2 16:02 13:52 have improved ec2 ec2 16:02 13:52 Vertigo, NSTEMI ec2 ec2 16:02 14:15 transferring doc ec2 ec2 16:02 14:15 Vertibrobasilar Insufficiency ec2 ec2 16:14 16:03 ec2 eb 16:21 13:09 MR STROKE PROTOCOL+MRI.RAD.BRZ ordered. EDMS EDMS 16:23 13:09 Neck With Cont+MRI.RAD.BRZ ordered. EDMS EDMS
--- NOTE | 2024-10-29 12:57 | P.HP ---
Certification for Inpatient Patient admitted to: Inpatient With expected LOS: >2 Midnights Patient will require the following post-hospital care: None Practitioner: I am a practitioner with admitting privileges, knowledge of patient current condition, hospital course, and medical plan of care. Services: Services provided to patient in accordance with Admission requirements found in Title 42 Section 412.3 of the Code of Federal Regulations Patient History Date of Service: 10/29/24 Reason for admission: Vertebrobasilar insufficiency, vasculopathy History of Present Illness: Ms. Cruz is a 68-year-old female with a past medical history of hypertension, hyperlipidemia, GERD, psoriatic arthritis, diabetes, and CAD status post [place]. She presents to the ED after his 3-day history of pressure in her chest with a sudden onset today of dizziness with decreased balance and listing to the left. She states she woke this morning and was stumbling toward the left. She called her PCP and was evaluated and directed to the emergency department. Labs in the ED only significant for a troponin of 87.5. Imaging included a head CT and a CTA of the head and neck. CT head shows no evidence of acute intracranial abnormality. CTA of the head normal. CTA of the neck, however shows near opacification of the vertebral arteries along the proximal V1 segments bilaterally. "The cervical vertebral arteries are otherwise patent to the skull base. Left vertebral artery is dominant. Early takeoff of the right PICA, probably proximal to the pleural entry, following which the right vertebral artery shows diminutive luminal caliber." Also noted, "moderate atherosclerotic plaque of the carotid bulbs and proximal ICAs, with up to 59% stenosis of the left proximal ICA. No significant stenosis extending 50% of the right ICA." It was recommended for patient to be transferred to higher level of care for vertebrobasilar insufficiency. The ED physician attempted transfer to higher level of care but neuro and neuro IR declined recommending MRA and stroke workup/management. We will get and admit her to the telemetry unit. Allergies codeine [Codeine] Allergy (Verified 03/11/13 18:16) Itching/Hives/Rash Home medications list reviewed: Yes - Past Medical/Surgical History Has patient received pneumonia vaccine in the past: No Diabetic: Yes -: Hypertension -: Hyperlipidemia -: Psoriatic arthritis -: CAD status post [place] -: GERD -: Hysterectomy -: Left ear surgery x 2 -: Bladder surgery -: Bilateral knee replacement Psychosocial/ Personal History: Quit smoking 6 years ago, rare EtOH use, - Family History Mother -: Other (see notes) (2 maternal aunts with breast cancer) - Social History Smoking Status: Former smoker CD- Drugs: No Caffeine use: Yes Place of Residence: Home Review of Systems 10-point ROS is otherwise unremarkable General: Other (Dizziness) Eyes: Unremarkable ENT: Unremarkable Respiratory: Unremarkable Cardiovascular: Chest Pain, Light Headedness Gastrointestinal: Unremarkable Genitourinary: Unremarkable Musculoskeletal: Unremarkable Integumentary: Unremarkable Neurological: Other (Dizzy), As per HPI Lymphatics: Unremarkable (To Betamide testing to be met) Physical Examination - Physical Exam General: Alert, In no apparent distress, Oriented x3 HEENT: Other (amblyopia) Neck: Supple Respiratory: Clear to auscultation bilaterally, Normal air movement Cardiovascular: Regular rate/rhythm, Other (Bradycardia) Capillary refill: <2 Seconds Gastrointestinal: Normal bowel sounds Musculoskeletal: No clubbing, No swelling Integumentary: Other (Tight, dehydrated appearing skin) Neurological: Normal speech, Normal tone, Normal affect, Other (Left arm tremor, imbalance with listing to the left) External genitalia: Deferred Rectal: Deferred - Studies Laboratory Data (last 24 hrs) 10/29/24 10/29/24 10/29/24 11:11 11:11 11:11 WBC 8.00 Hgb 13.1 Hct 38.2 Plt Count 263 PT 11.4 INR 1.02 APTT Cancelled 30.8 Sodium Potassium BUN Creatinine Glucose 10/29/24 11:11 WBC Hgb Hct Plt Count PT INR APTT Sodium 141 Potassium 4.1 BUN 16 Creatinine 0.99 Glucose 122 H Assessment and Plan - Plan Vertebrobasilar insufficiency Aspirin Statin GALINDO inhibitor Folic acid MRI head/MRA neck Angina with mild Trop elevation Trend troponins x 3 Telemetry [facility] diet Vertigo Echo -done and read by Dr. Jack - Minimal DD, otherwise normal with normal EF Meclizine Neurochecks every 4 Stroke scale every shift PT eval Diabetes Glucose monitoring before meals and at bedtime Continue patient's glimepiride 2 mg p.o. daily Sliding scale insulin with blood sugar goal less than 160 VTE/GI prophylaxis Discharge Plan: Home - Advance Directives Does patient have a Living Will: No Does patient have a Durable POA for Healthcare: No - Code Status/Comfort Care Code Status Assessed: Yes (Full) Critical Care: No
--- NOTE | 2024-10-29 15:12 | ECHO ---
HEIGHT: ft in WEIGHT: lb oz DATE OF STUDY: 10/29/[address]: Carmita Shultz [employer]AP[place]ESE INTERPRETER-BC 2-DIMENSIONAL: YES M.MODE: YES DOPPLER: YES COLOR FLOW: YES TDS: NO PORTABLE: YES DEFINITY: NO BUBBLE STUDY: NO DIAGNOSIS: CVA, CHEST PAIN WITH ELEVATED TROPONIN CARDIAC HISTORY: CATHERIZATION: NO SURGERY: NO PROSTHETIC VALVE: NO PACEMAKER: NO MEASUREMENTS (cm) DIASTOLIC (NORMALS) SYSTOLIC (NORMALS) IVSd 1.1 (0.6-1.2) LA Diam 2.5 (1.9-4.0) LVEF 50-55% LVIDd 4.9 (3.5-5.7) LVIDs 3.8 (2.0-3.5) %FS 23% LVPWd 1.3 (0.6-1.2) Ao Diam 2.5 (2.0-3.7) 2 DIMENSIONAL ASSESSMENT: RIGHT ATRIUM: NORMAL LEFT ATRIUM: NORMAL RIGHT VENTRICLE: NORMAL LEFT VENTRICLE: NORMAL TRICUSPID VALVE: INSUFFICENT TRICUSPID REGURGITATION MITRAL VALVE: NORMAL PULMONIC VALVE: NORMAL AORTIC VALVE: TRACE AORTIC REGURGITATION PERICARDIAL EFFUSION: NONE AORTIC ROOT: NORMAL LEFT VENTRICULAR WALL MOTION: NORMAL. DOPPLER/COLOR FLOW: GRADE I DIASTOLIC DYSFUNCTION. COMMENTS: 1. NORMAL LEFT VENTRICULAR SYSTOLIC FUNCTION. LEFT VENTRICULAR EJECTION FRACTION 50-55%. NORMAL WALL MOTION. 2. GRADE I DIASTOLIC DYSFUNCTION. 3. NORMAL FILLING PRESSURE. TECHNOLOGIST: BARRETT RYAN
[2024-10-29] MEDS ORDERED: HEPARIN/D5W 25,000 UNIT/500 ML BAG IV ONE (15:27)
[2024-10-29] MEDS ORDERED: LORazepam 2 MG/ML VIAL ONE (15:27)
[2024-10-29] MEDS ORDERED: ONDANSETRON 4 MG/2 ML VIAL ONE (15:28)
[2024-10-29] MEDS: ENOXAPARIN 40 MG/0.4 ML SQ SCH (16:00)
[2024-10-29] MEDS: INSULIN REGULAR (HUMAN) 100 UNIT/ML SQ SCH (16:30)
[2024-10-29] MEDS ORDERED: D10W 125 ML IV PRN (16:40)
[2024-10-29] MEDS ORDERED: GLUCAGON 1 MG/VIAL IM PRN (16:40)
--- NOTE | 2024-10-29 17:00 | RAD REPORT ---
EXAMINATION: MRI BRAIN WITHOUT CONTRAST CLINICAL INDICATION: Dizziness TECHNIQUE: Multiplanar multisequence MR images of the brain were obtained without intravenous contras t. Unless otherwise specified, incidental findings do not require dedicated imaging follow-up. COMPARISON: October 29, 2019 FINDINGS: Mild signal within periventricular, deep white matter may represent ischemic changes. Diffusion weighted/ADC mapping does not demonstrate evidence of an acute infarction. Ventricles are normal caliber. No extra-axial fluid collection. No fluid within the sinuses/mastoid seen IMPRESSION: No acute intracranial abnormalities displayed
[2024-10-29] MEDS: ATORVASTATIN 20 MG TAB PO SCH (20:51)
[2024-10-29 20:57] VITALS: BMI 32.9
[2024-10-30 04:32] VITALS: O2SAT 95
[2024-10-30 06:55] LABS: Albumin 3.2 g/dL (3.4-5.0); Albumin/Globulin Ratio 1.1 (1.1-1.8); Anion Gap 8.1 mEq/L (5.0-15.0); Bilirubin Total 0.3 mg/dL (0.2-1.0); Magnesium 2.1 mg/dL (1.6-2.4); Potassium 4.1 mEq/L (3.5-5.1); Protein, Total 6.2 g/dL (6.4-8.2)
[2024-10-30 07:34] VITALS: BP 158/67; TEMP 98.3
[2024-10-30] MEDS: lisinopriL 20 MG TAB PO SCH (07:51)
[2024-10-30] MEDS: PANTOPRAZOLE 40MG TABLET PO SCH (07:52)
[2024-10-30] MEDS: GLIMEPIRIDE 2 MG TABLET PO SCH (07:52)
[2024-10-30] MEDS: ASPIRIN EC 81 MG TAB PO SCH (07:52)
[2024-10-30] MEDS: FOLIC ACID 1 MG TABLET PO SCH (07:52)
[2024-10-30 08:07] LABS: Absolute Eosinophils 0.3 K/uL (0-0.5); Absolute Lymphocytes (CBC) 2.8 K/uL (0.7-4.9); Absolute Monocytes 0.6 K/uL (0.1-1.3); Absolute Neutrophil 3.2 K/uL (1.8-8.0); Basophils % 0.6 % (0-1.3); Eosinophils % 4.8 % (0-4.4); Hematocrit 35.2 % (36.0-45.0); Lymphocytes % 40.2 % (15.3-44.8); MCH 33.6 pg (27.0-35.0); MCV 98.8 fL (80-100); MPV 7.6 fL (7.6-11.3); Monocytes % 8.5 % (3.3-12.3); Neutrophils % 45.9 % (41.7-73.7); Platelets 219 thou/uL (152-406); RBC Red Blood Cell Count 3.56 M/uL (3.86-4.86); Red Cell Distribution Width 13.3 % (12.1-15.2)
[2024-10-30 08:12] LABS: PT Prothrombin Time 11.3 SECONDS (9.4-12.5); Protime INR 1.01
--- NOTE | 2024-10-30 08:56 | P.DS ---
Admission Date: 10/29/24 Discharge Date: 10/30/24 Disposition: ROUTINE DISCHARGE Discharge Condition: GOOD Reason for Admission: Vertebrobasilar insufficiency, vasculopathy Brief History of Present Illness: Ms. Cruz is a 68-year-old female with a past medical history of hypertension, hyperlipidemia, GERD, psoriatic arthritis, diabetes, and CAD status post [place]. She presents to the ED after his 3-day history of pressure in her chest with a sudden onset today of dizziness with decreased balance and listing to the left. She states she woke this morning and was stumbling toward the left. She called her PCP and was evaluated and directed to the emergency department. Labs in the ED only significant for a troponin of 87.5. Imaging included a head CT and a CTA of the head and neck. CT head shows no evidence of acute intracranial abnormality. CTA of the head normal. CTA of the neck, however shows near opacification of the vertebral arteries along the proximal V1 segments bilaterally. "The cervical vertebral arteries are otherwise patent to the skull base. Left vertebral artery is dominant. Early takeoff of the right PICA, probably proximal to the pleural entry, following which the right vertebral artery shows diminutive luminal caliber." Also noted, "moderate atherosclerotic plaque of the carotid bulbs and proximal ICAs, with up to 59% stenosis of the left proximal ICA. No significant stenosis extending 50% of the right ICA." It was recommended for patient to be transferred to higher level of care for vertebrobasilar insufficiency. The ED physician attempted transfer to higher level of care but neuro and neuro IR declined recommending MRA and stroke workup/management. We will get MR and admit her to the telemetry unit. Hospital Course: MRI imaging impression with negative intracranial findings. Ms. Cruz is feeling well. Dizziness is lessened. She states she is ambulating to bathroom without her walker without difficulty. She denies continued leaning to the left. She has full range of motion of all extremities. Meclizine seems to have helped. Will continue meclizine, statin, aspirin, folic acid and have patient follow-up with PCP/vascular for vertigo with high suspicion for vertebrobasilar insufficiency. She voices understanding of treatment plan and follow-up. Vital Signs/Physical Exam: Temp Pulse Resp BP Pulse Ox 98.3 F 60 16 158/67 H 96 10/30/24 07:33 10/30/24 07:51 10/30/24 07:33 10/30/24 07:51 10/30/24 07:33 Other Physical/Emotional Findings: - Physical Exam. General: Alert, Oriented x3, Cooperative, no distress. HEENT: Atraumatic, Normocephalic, amblyopia. Neck: Supple. Respiratory: Clear to auscultation bilaterally, Normal air movement. Cardiovascular: No edema, Regular rate/rhythm, Normal S1 S2. Capillary refill: <2 Seconds. Gastrointestinal: Soft and benign, without hepatosplenomegaly. Musculoskeletal: No clubbing, No swelling. Integumentary: No rashes, No breakdown. Neurological: Normal gait, Normal speech, Normal strength at 5/5 x4 extr, Cranial nerves 3-12 intact, Normal affect. Lymphatics: No axilla or inguinal lymphadenopathy Laboratory Data at Discharge: WBC 7.00 thou/uL (4.3-10.9) 10/30/24 07:57 Hgb 12.0 g/dL (12.0-15.0) D 10/30/24 07:57 Hct 35.2 % (36.0-45.0) L 10/30/24 07:57 Plt Count 219 thou/uL (152-406) 10/30/24 07:57 PT 11.3 SECONDS (9.4-12.5) 10/30/24 07:57 INR 1.01 10/30/24 07:57 APTT 30.8 SECONDS (24.3-36.9) 10/29/24 11:11 APTT Cancelled 10/29/24 11:11 Sodium 140 mEq/L (136-145) 10/30/24 05:58 Potassium 4.1 mEq/L (3.5-5.1) 10/30/24 05:58 BUN 16 mg/dL (7-18) 10/30/24 05:58 Creatinine 1.10 mg/dL (0.55-1.02) H 10/30/24 05:58 Glucose 134 mg/dL (74-106) H 10/30/24 05:58 Magnesium 2.1 mg/dL (1.6-2.4) 10/30/24 05:58 Total Bilirubin 0.3 mg/dL (0.2-1.0) 10/30/24 05:58 AST 44 U/L (15-37) H 10/30/24 05:58 ALT 52 U/L (13-56) 10/30/24 05:58 Alkaline Phosphatase 49 U/L (45-117) 10/30/24 05:58 Triglycerides 146 mg/dL (<150) 10/30/24 05:58 Cholesterol 154 mg/dL (<200) 10/30/24 05:58 HDL Cholesterol 40 mg/dL (40-60) 10/30/24 05:58 Cholesterol/HDL Ratio 3.85 10/30/24 05:58 Home Medications: Glimepiride 1 tab PO BEDTIME 10/29/24 Lisinopril [Zestril] 20 mg PO BEDTIME 10/29/24 Omeprazole [Prilosec] 40 mg PO BEDTIME 10/29/24 Simvastatin 1 tab PO BEDTIME 10/29/24 Aspirin [Ecotrin 81 MG] 81 mg PO DAILY #1 bot 10/30/24 Folic Acid 1 mg PO DAILY #1 bottle 10/30/24 Meclizine HCl 25 mg PO Q8HP PRN #32 tab 10/30/24 lisinopriL [Prinivil*] 20 mg PO DAILY #90 tab 10/30/24 New Medications: Aspirin [Ecotrin 81 MG] 81 mg PO DAILY #1 bot Folic Acid 1 mg PO DAILY #1 bottle Meclizine HCl 25 mg PO Q8HP PRN #32 tab PRN Reason: Dizziness lisinopriL [Prinivil*] 20 mg PO DAILY #90 tab Physician Discharge Instructions: Ms. Cruz is feeling well. Dizziness is lessened. She states she is ambulating to bathroom without her walker without difficulty. She denies continued leaning to the left. She has full range of motion of all extremities. Meclizine seems to have helped. Will continue meclizine, statin, aspirin, folic acid and have patient follow-up with PCP/vascular for vertigo with high suspicion for vertebrobasilar insufficiency. She voices understanding of treatment plan and follow-up. Diet: AHA Activity: Fall precautions Followup: Nj Dodson MD [Primary Care Provider] - Young Reddy MD [ASSOCIATE-ACTIVE - CAN ADMIT] -
== END 2024-10-30 10:29 | disposition home or self-care (01) | DRG 69 ==
LOC: ER 10:10 → ERHOLD 15:39 → 4TH 17:36
PROVIDERS: ADMIT Internal Medicine; ATTEND Internal Medicine
DX: G45.0 Vertebro-basilar artery syndrome (principal); I10 Essential (primary) hypertension; E78.00 Pure hypercholesterolemia, unspecified; E11.9 Type 2 diabetes mellitus without complications; K21.9 Gastro-esophageal reflux disease without esophagitis; I25.119 Atherosclerotic heart disease of native coronary artery with unspecified angina pectoris; I25.2 Old myocardial infarction; R42 Dizziness and giddiness; R29.700 NIHSS score 0; Z88.5 Allergy status to narcotic agent; Z79.82 Long term (current) use of aspirin; Z79.84 Long term (current) use of oral hypoglycemic drugs; Z87.891 Personal history of nicotine dependence; Z96.653 Presence of artificial knee joint, bilateral; Z90.710 Acquired absence of both cervix and uterus; Z79.899 Other long term (current) drug therapy
CPT/HCPCS: 36415; 70450; 70496; 70498; 70551; 71045; 80048; 80053; 80061; 82947; 83735; 83880; 84443; 84484; 85025; 85610; 85730; 93306; 99285; J1200; J1650; J2405; J2765; J3010; Q9967